=== PATIENT | female | born 1950 | race Two or more races ===

== ENCOUNTER 2020-02-21 11:34 | Emergency (ER) | payer MEDICAID, SELFPAY ==
[2020-02-21 12:24] VITALS: BP 106/88; PULSE 61; RESP 16; TEMP 36.7; O2SAT 100; BMI 34.7
--- NOTE | 2020-02-21 12:27 | ECG_ITS ---
Test Reason : CHEST PRESSURE Blood Pressure : / mmHG Vent. Rate : 069 BPM Atrial Rate : 069 BPM P-R Int : 152 ms QRS Dur : 136 ms QT Int : 440 ms P-R-T Axes : 021 -02 023 degrees QTc Int : 471 ms Normal sinus rhythm Right bundle branch block Abnormal ECG No previous ECGs available Referred By: Amrit King Electronically Signed By:FEMI RICO MD
--- NOTE | 2020-02-21 12:27 | XR_ITS ---
EXAMINATION: XR CHEST CLINICAL INFORMATION: Cough COMPARISON: None TECHNIQUE: Portable upright AP view of the chest was obtained. FINDINGS: There are scattered bilateral groundglass opacities predominantly mid and lower zones along the bronchovascular bundles and subpleural regions. There is no confluent lobar segmental airspace consolidation or effusion. The heart is normal in size. The hilar and mediastinal contours are normal. There are degenerative changes thoracic spine and shoulders. XR/XR chest 1V IMPRESSION: Scattered bilateral groundglass opacities mid and lower zones which may be related to atypical or viral pneumonia. No effusion.
--- NOTE | 2020-02-21 12:34 | ED.GENADULT ---
HPI - General Adult General Chief complaint: Allergic Reaction Stated complaint: ALLERGIC REACTION Time Seen by Provider: 02/21/20 12:25 Source: patient Mode of arrival: ambulatory Limitations: no limitations History of Present Illness HPI narrative: 69-year-old female with past medical history significant for hypertension on amlodipine, lisinopril and chlorthalidone home was experiencing some nasal congestion and rhinorrhea for the past couple days she developed a cough yesterday and called her primary care doctor as her was diagnosed with COVID-19 as well as couple other family members she was given a Z-Siddhartha and she took 1 dose last night and over the course of night she stated that she has some scratches nose and tongue swelling. This morning she called her primary care doctor who advised her to stop taking the chlorthalidone and lisinopril and the Z-Siddhartha as well and given her symptoms was advised to come to emergency room for evaluation. As it relates to the swelling in her tongue states that this has regressed significantly. Slight scratch in her throat but no shortness of breath or chest pain. There is no other rash or angioedema. She does report that she has had a cough with some mild shortness of breath in the setting of the rhinorrhea and other family members with similar symptoms with COVID test positive. She denies any lower extremity swelling or pain. No recent long flights or travel. Related Data Previous Rx's Medication Instructions Recorded benzonatate [Tessalon Perles] 100 mg PO BID PRN #14 cap 02/21/20 doxycycline monohydrate 100 mg PO BID 10 Days #20 cap 02/21/20 Allergies Allergy/AdvReac Type Severity Reaction Status Date / Time No Known Allergies Allergy Verified 02/21/20 12:26 Review of Systems Review of Systems: Constitutional: No Weight loss, No Fever, No Chills, No Night Sweats, No Fatigue, No Malaise ENT/Mouth: No Hearing loss, No Ear Pain, + Nasal Congestion, No Sinus Pain, No Hoarseness, No sore throat, No Rhinorrhea, No Swallowing Difficulty Eyes: No Eye Pain, No Swelling, No Redness, No Foreign Body, No Discharge, No Vision Changes Cardiovascular: No Chest Pain, No SOB, No Dyspnea on Exertion, No Orthopnea, No Edema, No Palpitations Respiratory: + Cough, No Sputum, No Wheezing, No Smoke Exposure, No Dyspnea Gastrointestinal: No Nausea, No Vomiting, No Diarrhea, No Constipation, No abdominal Pain, No Hematochezia, No Melena Genitourinary: no irregular bleeding, No Dysuria, No Urinary Frequency, No Hematuria, No Urinary Incontinence, No Urgency, No Flank Pain, No Urinary Flow Changes, No Hesitancy Musculoskeletal: No joint pain, No Myalgias, No Joint Swelling Skin: No Skin Lesions, No rash Neuro: No Weakness, No Numbness, No Paresthesias, No Loss of Consciousness, No Dizziness, No Headache Psych: No Social Issues, Heme/Lymph: No Bruising, No Bleeding,No Lymphadenopathy Endocrine: No Polyuria, No Polydipsia, No Temperature Intolerance [facility] Past Medical History Medical History (Updated 02/22/20 @ 00:04 by [place]) Breast CA Hypertension Surgical History (Updated 02/21/20 @ 12:27 by Jorge Aguilera) H/O mastectomy Social History Social History Alcohol intake: never Smoking Status: Never smoker Use of substances other than those prescribed or required for medical reasons: No Advance Directives: No Advance Directives Information Provided: No Physical Exam Vital Signs: Vital Signs: Last Vital Signs Temp 98.1 F 02/21/20 12:24 Pulse 61 02/21/20 12:24 Resp 16 02/21/20 12:24 BP 106/88 02/21/20 12:24 Pulse Ox 100 02/21/20 12:24 Body Mass Index 34.7 Reviewed Const: General: cooperative and healthy appearing; No acute distress or intoxicated appearing Nutritional Appearance: average body habitus Orientation/consciousness: patient oriented x3 HENMT: Head: Yes normal to inspection Ears: hearing grossly normal bilaterally Eyes: General: appearance normal, both eyes and all related structures Visual Stewart: normal visual stewart by confrontation Neck: Neck: Yes normal visual inspection and No tender Thyroid: Thyroid normal Chest: Chest palpation & inspection: normal inspection of the chest Resp: Effort & Inspection: normal respiratory effort Cardio: Jugular venous distension: no JVD GI: Inspection: Yes normal to inspection Percussion: Yes normal to percussion Auscultation: normal bowel sounds : General: Yes no CVA tenderness Back/Spine/Pelvis: Back: no CVA tenderness Skin: General skin exam: no rashes or lesions noted Neuro: General: patient oriented x3 Extrem: General: Yes normal to inspection Medical Decision Making MDM Narrative Medical decision making narrative: The now almost resolved angioedema is likely from her KENZIE-inhibitor and less likely from the drug reaction to azithromycin as she also had a nagging cough though she does have exposure to COVID-19 and she has had nasal congestion. Workup as noted. Patient resting comfortably no fever, not tachy, pulse ox of 97% on room air. No shortness of breath. Will be discharged home with antibiotics advised to stop her KENZIE-inhibitor, D.C. azithromycin and follow-up. Agreeable/comfortable plan. Findings reviewed with patient as well as daughter at bedside stable for discharge. Lab Data Result diagrams: 02/21/20 12:41 02/21/20 13:38 Labs: Lab Results 02/21/20 02/21/20 02/21/20 Range/Units 12:41 12:41 12:41 WBC 7.8 (4.8-10.8) X10*3/uL RBC 3.61 L (4.20-5.50) X10*6/uL Hgb 9.6 L (12.0-16.0) g/dl Hct 29.4 L (37-47) % MCV 81.4 (80-98) fL MCH 26.6 L (27.0-33.0) pg MCHC 32.7 (31.0-35.0) g/dl RDW 13.0 (11.0-16.0) % Plt Count 524 H (160-400) X10*3/uL MPV 8.5 L (9.4-12.3) fL Immature Gran % (Auto) 0.4 (0.0-0.4) % Neut % (Auto) 70.3 (45-73) % Lymph % (Auto) 19.1 L (20-40) % Crowley % (Auto) 8.1 (2-11) % Eos % (Auto) 1.7 (0-4) % Baso % (Auto) 0.4 (0-2) % Lymph # (Auto) 1.5 (1.2-4.9) X10*3/uL Crowley # (Auto) 0.6 (0.1-1.2) X10*3/uL Eos # (Auto) 0.1 (0.0-0.4) X10*3/uL Baso # (Auto) 0.0 (0.0-0.2) X10*3/uL Abs Immat Gran (auto) 0.03 (0.00-0.03) X10*3/uL Absolute Neuts (auto) 5.5 (2.0-8.3) X10*3/uL Absolute Nucleated RBC 0.000 (0.0-0.012) X10*3/uL Nucleated RBC % (auto) 0.0 (0.0-0.2) /100WBC PT (10.8-13.0) SEC INR (0.9-1.1) APTT (24.1-38.0) SEC D-Dimer NG/ML Sodium Cancelled Potassium Cancelled Chloride Cancelled Carbon Dioxide Cancelled Anion Gap Cancelled BUN Cancelled Creatinine Cancelled Estim Creat Clear Calc Cancelled Estimated GFR Cancelled Random Glucose Cancelled Lactic Acid (0.5-2.0) mmol/L Calcium Cancelled Total Bilirubin Cancelled AST Cancelled ALT Cancelled Alkaline Phosphatase Cancelled Troponin I High Sens (<3.5-17.0) ng/L B-Natriuretic Peptide 169 H (<100) pg/mL Total Protein Cancelled Albumin Cancelled Coronavirus (PCR) (Negative) 02/21/20 02/21/20 02/21/20 Range/Units 12:41 12:41 13:28 WBC (4.8-10.8) X10*3/uL RBC (4.20-5.50) X10*6/uL Hgb (12.0-16.0) g/dl Hct (37-47) % MCV (80-98) fL MCH (27.0-33.0) pg MCHC (31.0-35.0) g/dl RDW (11.0-16.0) % Plt Count (160-400) X10*3/uL MPV (9.4-12.3) fL Immature Gran % (Auto) (0.0-0.4) % Neut % (Auto) (45-73) % Lymph % (Auto) (20-40) % Crowley % (Auto) (2-11) % Eos % (Auto) (0-4) % Baso % (Auto) (0-2) % Lymph # (Auto) (1.2-4.9) X10*3/uL Crowley # (Auto) (0.1-1.2) X10*3/uL Eos # (Auto) (0.0-0.4) X10*3/uL Baso # (Auto) (0.0-0.2) X10*3/uL Abs Immat Gran (auto) (0.00-0.03) X10*3/uL Absolute Neuts (auto) (2.0-8.3) X10*3/uL Absolute Nucleated RBC (0.0-0.012) X10*3/uL Nucleated RBC % (auto) (0.0-0.2) /100WBC PT (10.8-13.0) SEC INR (0.9-1.1) APTT (24.1-38.0) SEC D-Dimer NG/ML Sodium Potassium Chloride Carbon Dioxide Anion Gap BUN Creatinine Estim Creat Clear Calc Estimated GFR Random Glucose Lactic Acid 0.6 (0.5-2.0) mmol/L Calcium Total Bilirubin AST ALT Alkaline Phosphatase Troponin I High Sens < 3.5 (<3.5-17.0) ng/L B-Natriuretic Peptide (<100) pg/mL Total Protein Albumin Coronavirus (PCR) POSITIVE A (Negative) 02/21/20 02/21/20 Range/Units 13:38 13:38 WBC (4.8-10.8) X10*3/uL RBC (4.20-5.50) X10*6/uL Hgb (12.0-16.0) g/dl Hct (37-47) % MCV (80-98) fL MCH (27.0-33.0) pg MCHC (31.0-35.0) g/dl RDW (11.0-16.0) % Plt Count (160-400) X10*3/uL MPV (9.4-12.3) fL Immature Gran % (Auto) (0.0-0.4) % Neut % (Auto) (45-73) % Lymph % (Auto) (20-40) % Crowley % (Auto) (2-11) % Eos % (Auto) (0-4) % Baso % (Auto) (0-2) % Lymph # (Auto) (1.2-4.9) X10*3/uL Crowley # (Auto) (0.1-1.2) X10*3/uL Eos # (Auto) (0.0-0.4) X10*3/uL Baso # (Auto) (0.0-0.2) X10*3/uL Abs Immat Gran (auto) (0.00-0.03) X10*3/uL Absolute Neuts (auto) (2.0-8.3) X10*3/uL Absolute Nucleated RBC (0.0-0.012) X10*3/uL Nucleated RBC % (auto) (0.0-0.2) /100WBC PT 11.8 (10.8-13.0) SEC INR 1.0 (0.9-1.1) APTT 30.0 (24.1-38.0) SEC D-Dimer 1723 NG/ML Sodium 128 L Potassium 4.7 Chloride 96 Carbon Dioxide 21 L Anion Gap 16 BUN 16 Creatinine 0.96 Estim Creat Clear Calc 57.6 Estimated GFR 57 Random Glucose 149 H Lactic Acid (0.5-2.0) mmol/L Calcium 8.3 L Total Bilirubin 0.2 AST 19 ALT 21 Alkaline Phosphatase 88 Troponin I High Sens (<3.5-17.0) ng/L B-Natriuretic Peptide (<100) pg/mL Total Protein 7.3 Albumin 3.7 Coronavirus (PCR) (Negative) Imaging Data CT scan - chest: Radiologist's impression: [place] [id number] CT Scan Report Signed Patient: MERCEDES HENNING#: [id number] : 1950Acct:[id number] Age/Sex: 69 / FADM Date: 02/21/20 Loc: .ED Attending Dr: Ordering Physician: Amrit King NP Date of Service: 02/21/20 Procedure(s): CT angio chest PE protocol Accession Number(s): [id number] cc: Amrit King AIRLINE RESERVATION AGENT~ EXAMINATION: CT ANGIOGRAM OF THE CHEST WITH AND WITHOUT CONTRAST (CT PULMONARY ANGIOGRAM FOR PE) CLINICAL INFORMATION: Reason for Exam SOB, elevated ddimer COMPARISON: Previous chest x-ray from earlier the same day TECHNIQUE: Prior to contrast administration, noncontrast localization images were obtained. Subsequently, multidetector volumetric imaging was performed from the thoracic inlet to below the diaphragms following the administration of 65 80 mLOmnipaque 350 intravenous contrast. No contrast reaction reported Sagittal, coronal, and MIP oblique sagittal reformatted images were obtained on the CT workstation, uploaded to PACS, and reviewed. This CT examination was performed using dose optimization techniques as appropriate, variously including the following: *Automated exposure control *Adjustment of mA and/or kV according to patient size (this includes techniques or standardized protocols for targeted exams where dose is matched to indication/reason for exam; i.e. extremities or head) *Use of iterative reconstruction technique Total exam dose-length product 454 mGy-cm FINDINGS: QUALITY OF STUDY/CONTRAST BOLUS: Satisfactory. PULMONARY ARTERIES: No central or segmental pulmonary emboli. THORACIC AORTA: No aneurysm or dissection. LUNG: There are bilateral peripheral groundglass attenuation and semisolid infiltrates. This is seen diffusely throughout the lungs but greatest at the lung bases. PLEURA: No pleural effusion or pneumothorax. MEDIASTINUM: The heart is upper normal in size. There is mild coronary artery calcification. The thoracic aorta is normal in caliber. There are small calcified and noncalcified mediastinal lymph nodes. No enlarged lymph nodes are seen. No evidence of septal bowing or right heart strain. CHEST WALL/AXILLA: The left breast has been removed. No chest wall mass or enlarged axillary lymph nodes are seen. OSSEOUS STRUCTURES: There are degenerative changes of the spine. There are degenerative changes at the shoulder joints. UPPER ABDOMEN: Unremarkable. No reflux of contrast into the hepatic veins to suggest elevated right heart pressures. CT/CT angio chest PE protocol IMPRESSION: No evidence of pulmonary embolism. Bilateral peripheral ground glass attenuation and semisolid opacities suggestive of an infectious or inflammatory process. Covid infection should be excluded. VTE: negative Findings will be communicated by the [facility] work flow vat house supervisor Leeanna Michelle. Dictated By:NICOLE GUTIERREZ MD Signed By:<Electronically signed by NICOLE GUTIERREZ MD in OV>02/21/20 1600 DD/ 1422 TD/TT: Computer Numerical Control Operator: MORE Chest x-ray: Radiologist's impression: [address] [address] XRay Report Signed Patient: ERICK HENNING#: [id number] : 1950Acct:[id number] Age/Sex: 69 / FADM Date: 02/21/20 Loc: HO.ED Attending Dr: Ordering Physician: Amrit King NP Date of Service: 02/21/20 Procedure(s): XR chest 1V Accession Number(s): [id number] cc: Amrit King AIRLINE RESERVATION AGENT~ EXAMINATION: XR CHEST CLINICAL INFORMATION: Cough COMPARISON: None TECHNIQUE: Portable upright AP view of the chest was obtained. FINDINGS: There are scattered bilateral groundglass opacities predominantly mid and lower zones along the bronchovascular bundles and subpleural regions. There is no confluent lobar segmental airspace consolidation or effusion. The heart is normal in size. The hilar and mediastinal contours are normal. There are degenerative changes thoracic spine and shoulders. XR/XR chest 1V IMPRESSION: Scattered bilateral groundglass opacities mid and lower zones which may be related to atypical or viral pneumonia. No effusion. Dictated By:SOFIA GATICA MD Signed By:<Electronically signed by SOFIA GATICA MD in OV>02/21/20 1315 DD/ 1227 TD/TT: Computer Numerical Control Operator: ALEXANDER Discharge Plan Discharge Clinical Impression: Adverse reaction to drug, COVID-19 Patient Disposition: Home, Self-Care Instructions: Antibiotic Medication Allergy (ED), COVID-19 (Coronavirus Disease 2019) (ED) Additional Instructions: Today you were evaluated for potential drug reaction to azithromycin Z-Siddhartha however your on a medication for high blood pressure (lisinopril) this medication is known to have side effects of angioedema (tongue swelling lip swelling) please stop taking his medications Today your also diagnosed with COVID-19 Return to the emergency room if any shortness of breath or worsening symptoms Otherwise take her antibiotic as prescribed Thank you Prescriptions: New doxycycline monohydrate 100 mg capsule 100 mg PO BID 10 Days Qty: 20 RF: 0 benzonatate [Tessalon Perles] 100 mg capsule 100 mg PO BID PRN (Reason: cough) Qty: 14 RF: 1 Referrals: Felicia Medellin MD [Primary Care Provider] - 1 week Interventions: ED Discharge Assessment Last Done: 02/21/20 16:27 Discharge Date/Time: 02/21/20 16:28
[2020-02-21 12:51] LABS: MANUAL DIFF FLAG NO
[2020-02-21 12:57] LABS: Basophils Percent Auto 0.4 % (0-2); Eosinophils Absolute Auto 0.1 X10*3/uL (0.0-0.4); Eosinophils Percent Auto 1.7 % (0-4); Hematocrit 29.4 % (37-47); Hemoglobin 9.6 g/dl (12.0-16.0); Imm Gran Abs Auto 0.03 X10*3/uL (0.00-0.03); Imm Gran Pct Auto 0.4 % (0.0-0.4); Lymphocytes Absolute Auto 1.5 X10*3/uL (1.2-4.9); Lymphocytes Percent Auto 19.1 % (20-40); Mean Corpuscular HGB Conc 32.7 g/dl (31.0-35.0); Mean Corpuscular Hemoglobin 26.6 pg (27.0-33.0); Mean Corpuscular Volume 81.4 fL (80-98); Mean Platelet Volume 8.5 fL (9.4-12.3); Monocytes Absolute Auto 0.6 X10*3/uL (0.1-1.2); Monocytes Percent Auto 8.1 % (2-11); Neutrophils Absolute Auto 5.5 X10*3/uL (2.0-8.3); Neutrophils Percent Auto 70.3 % (45-73); Platelet Count 524 X10*3/uL (160-400); Red Blood Count 3.61 X10*6/uL (4.20-5.50); White Blood Count 7.8 X10*3/uL (4.8-10.8)
[2020-02-21] MEDS: 0.9 % Sodium Chloride 500 ML 1000 ML IV (13:06)
[2020-02-21] MEDS: methylPREDNISolone Sod Succ/PF 125 MG/2 ML VIAL IVPUSH (13:06)
[2020-02-21] MEDS: diphenhydrAMINE HCL 50 MG/ML VIAL 25 MG IVPUSH (13:07)
[2020-02-21 13:26] LABS: Lactic Acid 0.6 mmol/L (0.5-2.0)
[2020-02-21 13:35] LABS: B Type Natriuretic Peptide 169 pg/mL (<100); Troponin-I High Sensitivity < 3.5 ng/L (<3.5-17.0)
[2020-02-21 13:57] LABS: Prothrombin Time 11.8 SEC (10.8-13.0)
[2020-02-21 14:07] LABS: D Dimer 1723 NG/ML
--- NOTE | 2020-02-21 14:22 | CT_ITS ---
EXAMINATION: CT ANGIOGRAM OF THE CHEST WITH AND WITHOUT CONTRAST (CT PULMONARY ANGIOGRAM FOR PE) CLINICAL INFORMATION: Reason for Exam SOB, elevated ddimer COMPARISON: Previous chest x-ray from earlier the same day TECHNIQUE: Prior to contrast administration, noncontrast localization images were obtained. Subsequently, multidetector volumetric imaging was performed from the thoracic inlet to below the diaphragms following the administration of 65 80 mLOmnipaque 350 intravenous contrast. No contrast reaction reported Sagittal, coronal, and MIP oblique sagittal reformatted images were obtained on the CT workstation, uploaded to PACS, and reviewed. This CT examination was performed using dose optimization techniques as appropriate, variously including the following: *Automated exposure control *Adjustment of mA and/or kV according to patient size (this includes techniques or standardized protocols for targeted exams where dose is matched to indication/reason for exam; i.e. extremities or head) *Use of iterative reconstruction technique Total exam dose-length product 454 mGy-cm FINDINGS: QUALITY OF STUDY/CONTRAST BOLUS: Satisfactory. PULMONARY ARTERIES: No central or segmental pulmonary emboli. THORACIC AORTA: No aneurysm or dissection. LUNG: There are bilateral peripheral groundglass attenuation and semisolid infiltrates. This is seen diffusely throughout the lungs but greatest at the lung bases. PLEURA: No pleural effusion or pneumothorax. MEDIASTINUM: The heart is upper normal in size. There is mild coronary artery calcification. The thoracic aorta is normal in caliber. There are small calcified and noncalcified mediastinal lymph nodes. No enlarged lymph nodes are seen. No evidence of septal bowing or right heart strain. CHEST WALL/AXILLA: The left breast has been removed. No chest wall mass or enlarged axillary lymph nodes are seen. OSSEOUS STRUCTURES: There are degenerative changes of the spine. There are degenerative changes at the shoulder joints. UPPER ABDOMEN: Unremarkable. No reflux of contrast into the hepatic veins to suggest elevated right heart pressures. CT/CT angio chest PE protocol IMPRESSION: No evidence of pulmonary embolism. Bilateral peripheral ground glass attenuation and semisolid opacities suggestive of an infectious or inflammatory process. Covid infection should be excluded. VTE: negative Findings will be communicated by the [facility] work flow strip winder Leeanna Michelle.
[2020-02-21 14:33] LABS: Alanine Aminotransferase 21 U/L (0-31); Albumin Level 3.7 g/dL (3.5-5.0); Alkaline Phosphatase 88 U/L (39-117); Aspartate Amino Transferase 19 U/L (5-31); Bilirubin Total 0.2 mg/dL (0.0-1.0); Blood Urea Nitrogen 16 mg/dL (9-16); Calcium 8.3 mg/dL (8.4-10.2); Creatinine Clr Calc Pharmacy 57.6; Estimated Glomerular Filt Rate 57; Glucose Random 149 mg/dL (60-115); Total Protein 7.3 g/dL (6.5-8.0)
[2020-02-21 14:35] LABS: SARS COV2 PCR INHOUSE POSITIVE (Negative)
[2020-02-21 14:41] LABS: Anion Gap 16 (12-20); Carbon Dioxide 21 mmol/L (22-29); Chloride 96 mmol/L (96-108); Potassium 4.7 mmol/l (3.3-5.1); Sodium 128 mmol/L (135-145)
--- NOTE | 2020-02-21 14:53 | PC.NURSE ---
taken to ct scan via stretcher
[2020-02-21] MEDS: iohexoL 350 MG/ML 100 ML INFUS..BTL IV (15:41)
== END 2020-02-21 16:28 | disposition home or self-care (01) ==
PROVIDERS: Nurse Practitioner Primary Care; Emergency Provider Emergency Medicine; PCP Internal Medicine
DX: U07.1 COVID-19 (principal); R09.89 Other specified symptoms and signs involving the circulatory and respiratory systems; T46.1X5A Adverse effect of calcium-channel blockers, initial encounter; T46.4X5A Adverse effect of angiotensin-converting-enzyme inhibitors, initial encounter; Y92.9 Unspecified place or not applicable; Z79.899 Other long term (current) drug therapy
CPT/HCPCS: 36415; 71045; 71275; 80053; 83605; 83880; 84484; 85025; 85379; 85610; 85730; 87040; 93005; 96374; 96375; 99284; J1200; J2930; Q9967; U0003

== ENCOUNTER 2021-06-07 13:07 | Inpatient (IN) | payer MEDICAID, SELFPAY ==
--- NOTE | ~2021-06-07 | XR_ITS ---
EXAMINATION: XR CHEST CLINICAL INFORMATION: Chest pain COMPARISON: February 21, 2020 TECHNIQUE: PA view of the chest was obtained. FINDINGS: No significant abnormality is noted involving the heart, lungs, mediastinum, bony thorax or soft tissues. Degenerative change of the acromioclavicular joints seen bilaterally. XR/XR chest 1V IMPRESSION: No acute disease.
--- NOTE | ~2021-06-07 | CT_ITS ---
EXAMINATION: CT ANGIOGRAM OF THE CHEST WITH AND WITHOUT CONTRAST (CT PULMONARY ANGIOGRAM FOR PE) CLINICAL INFORMATION: Reason for Exam cp with history of DVT COMPARISON: February 21, 2020 TECHNIQUE: Prior to contrast administration, noncontrast localization images were obtained. Subsequently, multidetector volumetric imaging was performed from the thoracic inlet to below the diaphragms following the administration of 69 mL Omnipaque 350 intravenous contrast. No contrast reaction reported Sagittal, coronal, and MIP oblique sagittal reformatted images were obtained on the CT workstation, uploaded to PACS, and reviewed. This CT examination was performed using dose optimization techniques as appropriate, variously including the following: *Automated exposure control *Adjustment of mA and/or kV according to patient size (this includes techniques or standardized protocols for targeted exams where dose is matched to indication/reason for exam; i.e. extremities or head) *Use of iterative reconstruction technique Total exam dose-length product 343 mGy-cm FINDINGS: QUALITY OF STUDY/CONTRAST BOLUS: Satisfactory. PULMONARY ARTERIES: No central or segmental pulmonary emboli. THORACIC AORTA: No aneurysm or dissection. LUNG: Central airways are patent. There is some central bronchial wall thickening present without evidence of bronchiectasis. No confluent parenchymal disease identified. There are some scattered regions of groundglass opacity present which are nonspecific and may relate to atelectasis, air-trapping, or regions of differential perfusion. PLEURA: No pleural effusion or pneumothorax. There is some endothoracic fat deposition present. MEDIASTINUM: Heart is upper limits of normal in size. Coronary artery calcifications present. No pericardial effusion. No hilar or mediastinal lymphadenopathy. There is a calcified right hilar lymph node and subcarinal lymph node. No evidence of septal bowing or right heart strain. Visualized portions of the thyroid gland unremarkable. There is some herniated fat seen about the right posterior mediastinum. CHEST WALL/AXILLA: No axillary or internal mammary lymphadenopathy. OSSEOUS STRUCTURES: There is severe degenerative change of the right shoulder joint. There is degenerative change of the left shoulder. No suspicious destructive bony lesions identified. There is degenerative disc disease with marginal spurring seen within the lower cervical spine as well as T1 and T2. UPPER ABDOMEN: Unremarkable. No reflux of contrast into the hepatic veins to suggest elevated right heart pressures. CT/CT angio chest PE protocol IMPRESSION: No evidence of acute pulmonary artery embolus. No evidence of thoracic aortic aneurysm or dissection. VTE: negative
--- NOTE | 2021-06-07 13:11 | ECG_ITS ---
Test Reason : CHEST PAIN Blood Pressure : / mmHG Vent. Rate : 069 BPM Atrial Rate : 069 BPM P-R Int : 154 ms QRS Dur : 134 ms QT Int : 454 ms P-R-T Axes : 031 -22 006 degrees QTc Int : 486 ms Normal sinus rhythm Right bundle branch block Abnormal ECG When compared with ECG of 21-FEB-2020 13:21, No significant change was found Referred By: Generic ED Physician Electronically Signed By:TERESSA MONTANEZ
[2021-06-07 13:33] VITALS: BP 165/85; PULSE 67; RESP 17; TEMP 35.7; O2SAT 98; BMI 33.8
[2021-06-07 14:21] LABS: MANUAL DIFF FLAG NO
[2021-06-07 14:23] LABS: Basophils Percent Auto 0.4 % (0-2); Eosinophils Absolute Auto 0.1 X10*3/uL (0.0-0.4); Eosinophils Percent Auto 0.7 % (0-4); Hematocrit 37.5 % (37.0-47.0); Imm Gran Abs Auto 0.05 X10*3/uL (0.00-0.03); Imm Gran Pct Auto 0.5 % (0.0-0.4); Lymphocytes Absolute Auto 2.3 X10*3/uL (1.2-4.9); Lymphocytes Percent Auto 23.5 % (20-40); Mean Corpuscular Hemoglobin 26.2 pg (27.0-33.0); Mean Corpuscular Volume 81.9 fL (80.0-98.0); Mean Platelet Volume 9.3 fL (9.4-12.3); Neutrophils Absolute Auto 6.3 x10*3/uL (2.0-8.3); Neutrophils Percent Auto 64.9 % (45-73); Platelet Count 362 X10*3/uL (160-400); Red Blood Count 4.58 X10*6/uL (4.20-5.50); Red Cell Distribution Width 13.2 % (11.0-16.0); White Blood Count 9.8 X10*3/uL (4.8-10.8)
[2021-06-07 14:28] LABS: Prothrombin Time 11.1 SEC (9.9-13.0)
[2021-06-07 14:31] LABS: Partial Thromboplastin Time 31.8 SEC (24.1-38.0)
[2021-06-07 14:35] LABS: Anion Gap 15 (12-20); Blood Urea Nitrogen 18 mg/dL (9-16); Calcium 9.4 mg/dL (8.4-10.2); Carbon Dioxide 27 mmol/L (22-29); Chloride 101 mmol/L (96-108); Creatinine Clr Calc Pharmacy 46.8; Estimated Glomerular Filt Rate 47; Glucose Random 126 mg/dL (60-115); Potassium 3.7 mmol/L (3.3-5.1); Sodium 139 mmol/L (135-145)
[2021-06-07 14:49] LABS: Troponin-I High Sensitivity 47.1 ng/L (<3.5-17.0)
[2021-06-07 15:48] VITALS: BP 175/73; PULSE 73; RESP 19
--- NOTE | 2021-06-07 16:19 | ED.CHESTPAIN ---
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 Chest pain started at 05:00, lasted for about 3 hours, described the pain as dull aching pain at to the whole entire chest, no arc revealing factor, no relieving factor, never had this pain before, give her 1 pill of antibiotic (Augmentin) left over and some pain medication and patient felt better after 3 hours of having the pain. No recent travel, no lower extremity swelling, no shortness of breath. But patient had history of DVT. No recent trauma to the chest. Related Data Previous Rx's Medication Instructions Recorded benzonatate 100 mg capsule 100 mg PO BID PRN #14 cap 02/21/20 (Tessalon Perles) doxycycline monohydrate 100 mg 100 mg PO BID 10 Days #20 cap 02/21/20 capsule Allergies Allergy/AdvReac Type Severity Reaction Status Date / Time No Known Allergies Allergy Verified 02/21/20 12:26 Review of Systems Review of Systems: All other systems are reviewed and are negative Constitutional: Reports as per HPI and Reports no additional constitutional complaints Eyes: Reports as per HPI and Reports no additional eye complaints Reports system reviewed and no additional complaints, except as documented Cardiovascular: Reports as per HPI and Reports no additional cardiovascular complaints Respiratory: Reports as per HPI and Reports no additional respiratory complaints Gastrointestinal: Reports as per HPI and Reports no additional gastrointestinal complaints Genitourinary: Reports no additional female genitourinary complaints Musculoskeletal: Reports no additional musculoskeletal complaints Skin/Breast: Reports system reviewed and no additional complaints, except as docu Psychiatric: Reports no additional psychiatric complaints Endocrine: Reports no additional endocrine complaints Hematologic/Lymphatic: Reports no additional hematologic/lymphatic complaints Allergic/Immunologic: Reports no additional allergic/immunologic complaints Reports system reviewed and no additional complaints, except as documented and Reports Abnormal speech present [facility] Past Medical History Medical History Breast CA Hypertension Surgical History H/O mastectomy Social History Social History Alcohol intake: never Advance Directives: Yes Advance Directives Information Provided: Yes Advance Directives on File: No Physical Exam Vital Signs: Vital Signs: Last Vital Signs Temp 96.2 F L 06/07/21 13:33 Pulse 73 06/07/21 15:48 Resp 19 06/07/21 15:48 BP 175/73 H 06/07/21 15:48 Pulse Ox 98 06/07/21 13:33 BMI result Body Mass Index 33.8 Vital signs have been reviewed as appeared to be correct. Blood pressure elevated. Heart rate normal. Respiration rate normal. Temperature normal. Oxygen saturation normal. Appearance: Alert. Oriented X3. No acute distress. Head: Normal external exam. Normocephalic. Atraumatic. No Hendrickson signs noted. No raccoon eyes noted Eyes: PERRLA. EOMI. Conjunctiva and sclera normal. Eyelids normal. ENT: TM's Normal. Pharynx normal. Uvula midline. Moist mucous membranes. No trismus noted. No drooling noted. No muffled voice noted. Neck: Normal inspection. Neck supple. FROM. No adenopathy. Thyroid Normal. No meningeal signs. No neck mass noted. CVS: Normal heart rate and rhythm. Heart sound normal. No murmurs noted. Pulses normal throughout. Respiratory: No respiratory distress. Painless inspiration. Breath sounds normal. No wheezes/rales/rhonchi noted. Chest nontender. No accessory muscle usage noted or decreased air movement noted. Abdomen: Soft and nontender. Bowel sounds normal in all 4 quadrants. No distention noted. No organomegaly noted. No visible injury noted. Back: No CVA tenderness. Full range of motion noted. Skin: Skin warm and dry. Normal skin color. Normal skin turgor. No rashes/lesions/lacerations noted. Extremities: No lower extremity edema. Extremities exhibit normal range of motion. Extremities nontender. Neuro: Oriented X 3. Cranial nerve exam: II-XII are grossly intact No motor deficit. No sensory deficit. Reflexes normal. Course Course Course Narrative: Assessment and plan. 70-year-old female came in with chest pain, 1st troponin is slightly elevated will repeat troponin in 3 hours to rule out delta change. Patient had a history of DVT will consider CT of the chest to rule out PE. Case signed out to Dr. Oconnor. To check on labs and CT angio of the chest then dispo accordingly. MDM - Chest Pain Lab Data Attestation: I reviewed the patient's lab results. Result diagrams: 06/07/21 14:15 06/07/21 14:15 Labs: Lab Results 06/07/21 06/07/21 06/07/21 Range/Units 14:15 14:15 14:15 WBC 9.8 (4.8-10.8) X10*3/uL RBC 4.58 (4.20-5.50) X10*6/uL Hgb 12.0 (12.0-16.0) g/dl Hct 37.5 (37.0-47.0) % MCV 81.9 (80.0-98.0) fL MCH 26.2 L (27.0-33.0) pg MCHC 32.0 (31.0-35.0) g/dl RDW 13.2 (11.0-16.0) % Plt Count 362 (160-400) X10*3/uL MPV 9.3 L (9.4-12.3) fL Immature Gran % (Auto) 0.5 H (0.0-0.4) % Neut % (Auto) 64.9 (45-73) % Lymph % (Auto) 23.5 (20-40) % [place] % (Auto) 10.0 (2-11) % Eos % (Auto) 0.7 (0-4) % Baso % (Auto) 0.4 (0-2) % Lymph # (Auto) 2.3 (1.2-4.9) X10*3/uL [place] # (Auto) 1.0 (0.1-1.2) X10*3/uL Eos # (Auto) 0.1 (0.0-0.4) X10*3/uL Baso # (Auto) 0.0 (0.0-0.2) X10*3/uL Abs Immat Gran (auto) 0.05 H (0.00-0.03) X10*3/uL Absolute Neuts (auto) 6.3 (2.0-8.3) x10*3/uL Absolute Nucleated RBC 0.000 (0.0-0.012) X10*3/uL Nucleated RBC % (auto) 0.0 (0.0-0.2) /100WBC PT (9.9-13.0) SEC INR (0.9-1.1) APTT (24.1-38.0) SEC Sodium 139 (135-145) mmol/L Potassium 3.7 (3.3-5.1) mmol/L Chloride 101 (96-108) mmol/L Carbon Dioxide 27 (22-29) mmol/L Anion Gap 15 (12-20) BUN 18 H (9-16) mg/dL Creatinine 1.15 (0.5-1.4) mg/dL Estim Creat Clear Calc 46.8 Estimated GFR 47 Random Glucose 126 H (60-115) mg/dL Calcium 9.4 D (8.4-10.2) mg/dL Troponin I High Sens 47.1 H (<3.5-17.0) ng/L 06/07/21 Range/Units 14:15 WBC (4.8-10.8) X10*3/uL RBC (4.20-5.50) X10*6/uL Hgb (12.0-16.0) g/dl Hct (37.0-47.0) % MCV (80.0-98.0) fL MCH (27.0-33.0) pg MCHC (31.0-35.0) g/dl RDW (11.0-16.0) % Plt Count (160-400) X10*3/uL MPV (9.4-12.3) fL Immature Gran % (Auto) (0.0-0.4) % Neut % (Auto) (45-73) % Lymph % (Auto) (20-40) % [place] % (Auto) (2-11) % Eos % (Auto) (0-4) % Baso % (Auto) (0-2) % Lymph # (Auto) (1.2-4.9) X10*3/uL [place] # (Auto) (0.1-1.2) X10*3/uL Eos # (Auto) (0.0-0.4) X10*3/uL Baso # (Auto) (0.0-0.2) X10*3/uL Abs Immat Gran (auto) (0.00-0.03) X10*3/uL Absolute Neuts (auto) (2.0-8.3) x10*3/uL Absolute Nucleated RBC (0.0-0.012) X10*3/uL Nucleated RBC % (auto) (0.0-0.2) /100WBC PT 11.1 (9.9-13.0) SEC INR 1.0 (0.9-1.1) APTT 31.8 (24.1-38.0) SEC Sodium (135-145) mmol/L Potassium (3.3-5.1) mmol/L Chloride (96-108) mmol/L Carbon Dioxide (22-29) mmol/L Anion Gap (12-20) BUN (9-16) mg/dL Creatinine (0.5-1.4) mg/dL Estim Creat Clear Calc Estimated GFR Random Glucose (60-115) mg/dL Calcium (8.4-10.2) mg/dL Troponin I High Sens (<3.5-17.0) ng/L Imaging Data Chest x-ray: Attestation: I personally reviewed and interpreted this imaging study as follows: Radiologist's impression: No acute disease. Discharge Plan Discharge Clinical Impression: Chest pain Prescriptions: No Action doxycycline monohydrate 100 mg capsule 100 mg PO BID 10 Days Qty: 20 0RF benzonatate [Tessalon Perles] 100 mg capsule 100 mg PO BID PRN (Reason: cough) Qty: 14 1RF
[2021-06-07 16:35] LABS: D Dimer High Sensitivity 306 NG/ML
[2021-06-07] MEDS: iohexoL 350 MG/ML 100 ML INFUS..BTL IV (16:37)
--- NOTE | 2021-06-07 16:55 | ECG_ITS ---
Test Reason : CP Blood Pressure : / mmHG Vent. Rate : 075 BPM Atrial Rate : 075 BPM P-R Int : 150 ms QRS Dur : 142 ms QT Int : 424 ms P-R-T Axes : 036 -26 024 degrees QTc Int : 473 ms Normal sinus rhythm with sinus arrhythmia Right bundle branch block Abnormal ECG When compared with ECG of 07-JUN-2021 13:20, No significant change was found Referred By: Reynaldo Oconnor Electronically Signed By:TERESSA MONTANEZ
--- NOTE | 2021-06-07 16:57 | ED.CHESTPAIN ---
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 Mode of arrival: ambulatory Limitations: no limitations Related Data Home Medications Medication Instructions Recorded Confirmed amlodipine 10 mg tablet 1 tab PO DAILY 06/07/21 anastrozole 1 mg tablet 1 tab PO BEDTIME 06/07/21 chlorthalidone 25 mg tablet 1 tab PO DAILY 06/07/21 cholecalciferol (vitamin D3) 10 20 mcg PO DAILY 06/07/21 06/07/21 mcg (400 unit) tablet (Vitamin D3) omeprazole 40 mg capsule,delayed 1 cap PO DAILY 06/07/21 release Allergies Allergy/AdvReac Type Severity Reaction Status Date / Time No Known Allergies Allergy Verified 02/21/20 12:26 [facility] Past Medical History Medical History Breast CA Hypertension Surgical History H/O mastectomy Social History Social History Alcohol intake: never Advance Directives: Yes Advance Directives Information Provided: Yes Advance Directives on File: No Physical Exam Vital Signs: Vital Signs: Last Vital Signs Temp 96.2 F L 06/07/21 13:33 Pulse 89 06/07/21 17:01 Resp 12 06/07/21 17:01 BP 162/79 H 06/07/21 17:01 Pulse Ox 100 06/07/21 17:01 BMI result Body Mass Index 33.8 MDM - Chest Pain Lab Data Attestation: I reviewed the patient's lab results. Result diagrams: 06/07/21 14:15 06/07/21 14:15 Labs: Lab Results 06/07/21 06/07/21 06/07/21 Range/Units 14:15 14:15 14:15 WBC 9.8 (4.8-10.8) X10*3/uL RBC 4.58 (4.20-5.50) X10*6/uL Hgb 12.0 (12.0-16.0) g/dl Hct 37.5 (37.0-47.0) % MCV 81.9 (80.0-98.0) fL MCH 26.2 L (27.0-33.0) pg MCHC 32.0 (31.0-35.0) g/dl RDW 13.2 (11.0-16.0) % Plt Count 362 (160-400) X10*3/uL MPV 9.3 L (9.4-12.3) fL Immature Gran % (Auto) 0.5 H (0.0-0.4) % Neut % (Auto) 64.9 (45-73) % Lymph % (Auto) 23.5 (20-40) % [place] % (Auto) 10.0 (2-11) % Eos % (Auto) 0.7 (0-4) % Baso % (Auto) 0.4 (0-2) % Lymph # (Auto) 2.3 (1.2-4.9) X10*3/uL [place] # (Auto) 1.0 (0.1-1.2) X10*3/uL Eos # (Auto) 0.1 (0.0-0.4) X10*3/uL Baso # (Auto) 0.0 (0.0-0.2) X10*3/uL Abs Immat Gran (auto) 0.05 H (0.00-0.03) X10*3/uL Absolute Neuts (auto) 6.3 (2.0-8.3) x10*3/uL Absolute Nucleated RBC 0.000 (0.0-0.012) X10*3/uL Nucleated RBC % (auto) 0.0 (0.0-0.2) /100WBC PT (9.9-13.0) SEC INR (0.9-1.1) APTT (24.1-38.0) SEC D-Dimer High Sensitivty NG/ML Sodium 139 (135-145) mmol/L Potassium 3.7 (3.3-5.1) mmol/L Chloride 101 (96-108) mmol/L Carbon Dioxide 27 (22-29) mmol/L Anion Gap 15 (12-20) BUN 18 H (9-16) mg/dL Creatinine 1.15 (0.5-1.4) mg/dL Estim Creat Clear Calc 46.8 Estimated GFR 47 Random Glucose 126 H (60-115) mg/dL Calcium 9.4 D (8.4-10.2) mg/dL Troponin I High Sens 47.1 H (<3.5-17.0) ng/L COVID-19 (BRIJESH) (Negative) COVID-19 Clin Com 06/07/21 06/07/21 06/07/21 Range/Units 14:15 17:06 17:06 WBC (4.8-10.8) X10*3/uL RBC (4.20-5.50) X10*6/uL Hgb (12.0-16.0) g/dl Hct (37.0-47.0) % MCV (80.0-98.0) fL MCH (27.0-33.0) pg MCHC (31.0-35.0) g/dl RDW (11.0-16.0) % Plt Count (160-400) X10*3/uL MPV (9.4-12.3) fL Immature Gran % (Auto) (0.0-0.4) % Neut % (Auto) (45-73) % Lymph % (Auto) (20-40) % [place] % (Auto) (2-11) % Eos % (Auto) (0-4) % Baso % (Auto) (0-2) % Lymph # (Auto) (1.2-4.9) X10*3/uL [place] # (Auto) (0.1-1.2) X10*3/uL Eos # (Auto) (0.0-0.4) X10*3/uL Baso # (Auto) (0.0-0.2) X10*3/uL Abs Immat Gran (auto) (0.00-0.03) X10*3/uL Absolute Neuts (auto) (2.0-8.3) x10*3/uL Absolute Nucleated RBC (0.0-0.012) X10*3/uL Nucleated RBC % (auto) (0.0-0.2) /100WBC PT 11.1 (9.9-13.0) SEC INR 1.0 (0.9-1.1) APTT 31.8 (24.1-38.0) SEC D-Dimer High Sensitivty 306 NG/ML Sodium (135-145) mmol/L Potassium (3.3-5.1) mmol/L Chloride (96-108) mmol/L Carbon Dioxide (22-29) mmol/L Anion Gap (12-20) BUN (9-16) mg/dL Creatinine (0.5-1.4) mg/dL Estim Creat Clear Calc Estimated GFR Random Glucose (60-115) mg/dL Calcium (8.4-10.2) mg/dL Troponin I High Sens 49.7 H (<3.5-17.0) ng/L COVID-19 (BRIJESH) Negative (Negative) COVID-19 Clin Com See Note Discharge Plan Discharge Clinical Impression: Chest pain Patient Disposition: Admitted As Inpatient
[2021-06-07 17:01] VITALS: BP 162/79; PULSE 89; RESP 12; O2SAT 100
[2021-06-07] MEDS: Aspirin 81 MG TAB.CHEW 162 MG PO (17:04)
[2021-06-07] MEDS: Nitroglycerin 2 % Oint 1 GM Packet 1 INCH TRANSDERMA (17:05)
--- NOTE | 2021-06-07 17:18 | PC.NURSE ---
Nitro paste applied to upper right chest at 1715
[2021-06-07 17:35] LABS: COVID-19 Test Negative (Negative); IDNOW Serial# 16C4AD1C
[2021-06-07 17:39] LABS: Troponin-I High Sensitivity 49.7 ng/L (<3.5-17.0)
[2021-06-07 17:50] VITALS: BP 142/72; PULSE 84; RESP 18; O2SAT 97
--- NOTE | 2021-06-07 17:50 | PHA.MEDREC ---
Pharmacy Consult ? Medication Reconciliation Pharmacy has completed the medication reconciliation. Spoke with patient and her daughter in law who works at [employer] [facility] [place], she is able to translate ([phone]). The patient took all of her morning medications today and I was able to update her allergies.
[2021-06-07 18:14] VITALS: BMI 33.6
--- NOTE | 2021-06-07 18:19 | PM.IMHP ---
History of Present Illness Date of Service: 06/07/21 Attending physician on admission: Eugenio Schwarz Chief Complaint: chest pain 70 years old female came in for evaluation of chest pain-Chest pain started at 05:00, lasted for about 3 hours, dull aching pain at to the whole entire chest and neck as well as back, she says she thought probably sec to stomach upset, denies any revealing factor or relieving factor, never had this pain before, give her 1 pill of antibiotic (Augmentin) left over and some pain medication and patient felt better afterwards, she says than her family insisted her to come to the hospital for checkup. She says that she did not had any other episode of chest pain afterwards. No recent travel, no lower extremity swelling,No recent trauma chest. Denies any or shortness of breath or abdominal pain or fever or chills or nausea or vomiting Denies any cough Denies any weakness or numbness. Workup in the emergency room: CTA negative for pulmonary embolism, chest x-ray seems fine, troponin 47 and 49 flat range simultaneously. EKG NSR with RBBB Family history: Patient denies any history of cardiac disease, denies any smoking or recreational drug use or alcohol use. In Ed: recived asa , heparin , added statin, ED physician discussed the case with Cardiology: Patient admitted for further workup and if needed further intervention, started on IV heparin drip. Review of Systems Review of Systems: As above. Yes all other systems are reviewed and are negative [facility] Medical History Breast CA Hypertension Pertinent family history: Father had gallbladder cancer. Surgical History H/O mastectomy Social History Alcohol intake: unknown Patient Tobacco Use Status: Tobacco use Unknown Use of substances other than those prescribed or required for medical reasons: Unknown Advance Directives: Yes Advance Directives Information Provided: Yes Advance Directives on File: No Meds Allergies Allergy/AdvReac Type Severity Reaction Status Date / Time ibuprofen Allergy Anaphylaxis Verified 06/07/21 17:50 lisinopril AdvReac Cough Verified 06/07/21 17:49 Active Medications: Current Medications Amlodipine Besylate (Amlodipine Besylate 10 Mg Tablet) 10 mg PO DAILY [facility]; Protocol Anastrozole (Anastrozole 1 Mg Tablet) 1 mg PO BEDTIME [facility] Aspirin (Aspirin Enteric Coated 81 Mg Tablet.) 81 mg PO DAILY [facility] Atorvastatin Calcium (Atorvastatin Calcium 80 Mg Tablet) 80 mg PO BEDTIME [facility] Heparin Sodium (Porcine) (Heparin Sodium,Porcine 5,000 Unit/Ml Vial) 3,500 unit 40 unit/kg (3500 unit) IVPUSH PROTOCOL BOLUS PRN; Protocol PRN Reason: 40 unit/kg - Heparin Protocol Heparin Sodium (Porcine) (Heparin Sodium,Porcine 5,000 Unit/Ml Vial) 6,900 unit 80 unit/kg (6900 unit) IVPUSH PROTOCOL BOLUS PRN; Protocol PRN Reason: 80 unit/kg - Heparin Protocol Heparin Sodium/Sodium Chloride () 25,000 unit in 250 mls @ 0 mls/hr IVCONT .Q0M SEA; Protocol Non-Formulary Medication (Chlorthalidone) 1 tab PO DAILY [facility] Omeprazole (Omeprazole 40 Mg Capsule.) 40 mg PO DAILY [facility] Sodium Chloride (0.9 % Sodium Chloride Flush 3 Ml Syringe) 3 ml IVFLUSH QSHIFT [facility] Vitamin D (Cholecalciferol (Vitamin D3) 10 Mcg Tablet) 20 mcg PO DAILY [facility] Home Medications Medication Instructions Recorded Confirmed Last Taken Type amlodipine 10 mg tablet 1 tab PO DAILY 06/07/21 06/07/21 06/07/21 History anastrozole 1 mg tablet 1 tab PO BEDTIME 06/07/21 06/07/21 06/06/21 History chlorthalidone 25 mg tablet 1 tab PO DAILY 06/07/21 06/07/21 06/07/21 History cholecalciferol (vitamin D3) 10 20 mcg PO DAILY 06/07/21 06/07/21 06/07/21 History mcg (400 unit) tablet (Vitamin D3) omeprazole 40 mg capsule,delayed 1 cap PO DAILY 06/07/21 06/07/21 06/07/21 History release Physical Exam Vital Signs and Narrative: Vital Signs: Last Vital Signs Temp 96.2 F L 06/07/21 13:33 Pulse 84 06/07/21 17:50 Resp 18 06/07/21 17:50 BP 142/72 H 06/07/21 17:50 Pulse Ox 97 06/07/21 17:50 BMI result Body Mass Index 33.6 Appearance: Alert.? Oriented X3.? not in distress.? Eyes: Pupils equal, round and reactive to light.? Sclera nonicteric.? ENT: Pharynx normal.? Moist mucous membranes. cvs: rrr, [id number] , no murmur res: clear to auscultation ,no rhonchii or wheezing abd: no rebound or guarding ,nt, bs present. ext pulses present , no cyanosis . neuro: axo3 , nonfocal. Results Labs CBC and Chem 7: 06/08/21 04:33 06/08/21 04:33 Labs: Laboratory Results - last 24 hr 06/07/21 06/07/21 06/07/21 14:15 14:15 14:15 MCV 81.9 MCH 26.2 L MCHC 32.0 RDW 13.2 Plt Count 362 MPV 9.3 L Immature Gran % (Auto) 0.5 H Neut % (Auto) 64.9 Lymph % (Auto) 23.5 [place] % (Auto) 10.0 Eos % (Auto) 0.7 Baso % (Auto) 0.4 Lymph # (Auto) 2.3 [place] # (Auto) 1.0 Eos # (Auto) 0.1 Baso # (Auto) 0.0 Abs Immat Gran (auto) 0.05 H Absolute Neuts (auto) 6.3 Absolute Nucleated RBC 0.000 Nucleated RBC % (auto) 0.0 PT 11.1 INR 1.0 APTT 31.8 D-Dimer High Sensitivty 306 Anion Gap 15 Estim Creat Clear Calc 46.8 Estimated GFR 47 Random Glucose 126 H Calcium 9.4 D COVID-19 (BRIJESH) COVID-19 Clin Com 06/07/21 17:06 MCV MCH MCHC RDW Plt Count MPV Immature Gran % (Auto) Neut % (Auto) Lymph % (Auto) [place] % (Auto) Eos % (Auto) Baso % (Auto) Lymph # (Auto) [place] # (Auto) Eos # (Auto) Baso # (Auto) Abs Immat Gran (auto) Absolute Neuts (auto) Absolute Nucleated RBC Nucleated RBC % (auto) PT INR APTT D-Dimer High Sensitivty Anion Gap Estim Creat Clear Calc Estimated GFR Random Glucose Calcium COVID-19 (BRIJESH) Negative COVID-19 Clin Com See Note Imaging Radiologist's Impressions: Impressions Chest X-Ray 06/07/21 14:09 IMPRESSION: No acute disease. Chest CTA 06/07/21 16:39 IMPRESSION: No evidence of acute pulmonary artery embolus. No evidence of thoracic aortic aneurysm or dissection. VTE: negative Assessment and Plan (1) Chest pain: Status: Acute (2) NSTEMI (non-ST elevated myocardial infarction): Status: Acute Plan 70 y/o F with chest pain 1. nstemi /unstable angina' Continue aspirin, statin, IV heparin Check lipid panel Cardio evaluation, echo 2. Hypertension: Continue amlodipine and chlorthalidone. 3. Breath history of breast cancer: Status post left breast surgery in 2017 , Continue anastrozole. 4. GERD: Continue omeprazole DVT prophylaxis with heparin. Above management discussed with patient and her daughter in line detail length they both understand and in agreement with the plan, time spent 70 minute, patient full code. Quality Stroke Does the patient have a stroke diagnosis?: No VTE Prior VTE?: No VTE Risk Level:: Medical - moderate - high VTE Device Contraindication: N/A - Device Ordered VTE Drug Contraindication: N/A - Med Ordered
[2021-06-07] MEDS: Heparin Sodium,Porcine 5,000 UNIT/ML VIAL 5000 UNIT IVPUSH (19:02)
[2021-06-07] MEDS: Heparin Sodium,Porcine/1/2NS 25,000 UNIT/250 ML IV.SOLN 10 UNIT IVCONT (19:07)
[2021-06-07 20:03] VITALS: BP 131/59; PULSE 84; RESP 12; TEMP 36.8; O2SAT 99
[2021-06-07] MEDS: Atorvastatin Calcium 80 MG TABLET PO (21:12)
[2021-06-07] MEDS: Anastrozole 1 MG TABLET PO (21:12)
[2021-06-08] VITALS (7 sets, daily range): BP systolic 112–145; BP diastolic 47–65; PULSE 68–84; RESP 12–20; TEMP 36.3–37.1; O2SAT 95–97
[2021-06-08 01:47] LABS: PTT Heparin Drip 127.3 SEC (53-77.9)
--- NOTE | 2021-06-08 02:57 | PC.NURSE ---
Patient's ptt heparin drip came back at 127.3. Notified at 0250 by RN who took result about what the lab result was. This policy writer sales immediately stopped the heparin drip per protocol and Ptt drawn hourly. Heparin drip rate was 11.61 and per protocol starting rate is 10 units/ml.
[2021-06-08 03:59] LABS: PTT Heparin Drip 84.8 SEC (53-77.9)
[2021-06-08 04:37] LABS: Hematocrit 31.2 % (37.0-47.0); Hemoglobin 10.3 g/dl (12.0-16.0); Mean Corpuscular Volume 81.9 fL (80.0-98.0); Platelet Count 285 X10*3/uL (160-400); Red Blood Count 3.81 X10*6/uL (4.20-5.50); Red Cell Distribution Width 13.3 % (11.0-16.0); White Blood Count 8.3 X10*3/uL (4.8-10.8)
[2021-06-08 04:46] LABS: PTT Heparin Drip 58.2 SEC (53-77.9)
[2021-06-08 05:05] LABS: Anion Gap 15 (12-20); Blood Urea Nitrogen 17 mg/dL (9-16); Calcium 8.3 mg/dL (8.4-10.2); Carbon Dioxide 24 mmol/L (22-29); Chloride 104 mmol/L (96-108); Cholesterol 188 mg/dL; Creatinine Clr Calc Pharmacy 58.9; Estimated Glomerular Filt Rate > 60; Glucose Random 136 mg/dL (60-115); HDL Cholesterol 52 mg/dL; LDL Cholesterol Calculated 121 mg/dl; Potassium 3.4 mmol/L (3.3-5.1); Sodium 140 mmol/L (135-145); Triglycerides 78 mg/dL
--- NOTE | 2021-06-08 05:34 | PC.NURSE ---
Patient's heparin drip was late restarting due to delay in lab draws due to this nurse with another critical patient. Heparin restarted per protocol as the correct rate of 6 units/kg/hr and verified by charge nurse. The initial rate was incorrect at 11.61 units/kg/hr. Patient's next draw should be at 1015
[2021-06-08] MEDS: Omeprazole 40 MG CAPSULE.DR PO (07:15)
[2021-06-08] MEDS: amLODIPine Besylate 10 MG TABLET PO (08:08)
[2021-06-08] MEDS: Aspirin Enteric Coated 81 MG TABLET.DR PO (08:08)
[2021-06-08] MEDS: hydroCHLOROthiazide 25 MG TABLET PO (08:08)
[2021-06-08] MEDS: Cholecalciferol (Vitamin D3) 10 MCG TABLET 20 MCG PO (08:09)
--- NOTE | 2021-06-08 08:48 | P.PNIM_ITS ---
Subjective Subjective Date of Service: 06/08/21 Interval History: nstemi , chest pain Review of Systems Denies any chest pain shortness of breath or abdominal pain or fever chills or cough or phlegm nausea vomiting Physical Exam Vital Signs: Vital Signs: Last Vital Signs Temp 97.6 F 06/08/21 02:35 Pulse 68 06/08/21 07:50 Resp 15 06/08/21 07:50 BP 112/55 L 06/08/21 07:50 Pulse Ox 95 06/08/21 07:50 BMI result Body Mass Index 33.6 Appearance: Alert.? Oriented X3.? not in distress.? Eyes: Pupils equal, round and reactive to light.? Sclera nonicteric.? ENT: Pharynx normal.? Moist mucous membranes. cvs: [id number], [id number] , no murmur res: clear to auscultation ,no rhonchii or wheezing abd: no rebound or guarding ,nt, bs present. ext pulses present , no cyanosis . neuro: axo3 , nonfocal. Objective Data Active Medications Amlodipine Besylate (Amlodipine Besylate 10 Mg Tablet) 10 mg PO DAILY [facility]; Protocol Last Admin: 06/08/21 08:08 Dose: 10 mg Documented by: ZACH Anastrozole (Anastrozole 1 Mg Tablet) 1 mg PO BEDTIME [facility] Last Admin: 06/07/21 21:12 Dose: 1 mg Documented by: SANDY Aspirin (Aspirin Enteric Coated 81 Mg Tablet.) 81 mg PO DAILY [facility] Last Admin: 06/08/21 08:08 Dose: 81 mg Documented by: ZACH Atorvastatin Calcium (Atorvastatin Calcium 80 Mg Tablet) 80 mg PO BEDTIME [facility] Last Admin: 06/07/21 21:12 Dose: 80 mg Documented by: SANDY Heparin Sodium (Porcine) (Heparin Sodium,Porcine 5,000 Unit/Ml Vial) 3,500 unit 40 unit/kg (3500 unit) IVPUSH PROTOCOL BOLUS PRN; Protocol PRN Reason: 40 unit/kg - Heparin Protocol Heparin Sodium (Porcine) (Heparin Sodium,Porcine 5,000 Unit/Ml Vial) 6,900 unit 80 unit/kg (6900 unit) IVPUSH PROTOCOL BOLUS PRN; Protocol PRN Reason: 80 unit/kg - Heparin Protocol Hydrochlorothiazide (Hydrochlorothiazide 25 Mg Tablet) 25 mg PO DAILY [facility] Last Admin: 06/08/21 08:08 Dose: 25 mg Documented by: ZACH Heparin Sodium/Sodium Chloride () 25,000 unit in 250 mls @ 0 mls/hr IVCONT .Q0M [facility]; Protocol Last Titration: 06/08/21 05:13 Dose: 6 units/kg/hr, 5.17 mls/hr Documented by: SANDY Cosigned by: CLYDE Omeprazole (Omeprazole 40 Mg Capsule.) 40 mg PO DAILY@0630 [facility] Last Admin: 06/08/21 07:15 Dose: 40 mg Documented by: SANDY Sodium Chloride (0.9 % Sodium Chloride Flush 3 Ml Syringe) 3 ml IVFLUSH QSHIFT [facility] Last Admin: 06/08/21 07:22 Dose: Not Given Documented by: MARIBELL Non-Admin Reason: Med Not Available Vitamin D (Cholecalciferol (Vitamin D3) 10 Mcg Tablet) 20 mcg PO DAILY [facility] Last Admin: 06/08/21 08:09 Dose: 10 mcg Documented by: ZACH Labs CBC & Chem 7: 06/08/21 04:33 06/08/21 04:33 Labs: Laboratory Results - last 24 hr 06/07/21 06/07/21 06/07/21 14:15 14:15 14:15 MCV 81.9 MCH 26.2 L MCHC 32.0 RDW 13.2 Plt Count 362 MPV 9.3 L Immature Gran % (Auto) 0.5 H Neut % (Auto) 64.9 Lymph % (Auto) 23.5 [place] % (Auto) 10.0 Eos % (Auto) 0.7 Baso % (Auto) 0.4 Lymph # (Auto) 2.3 [place] # (Auto) 1.0 Eos # (Auto) 0.1 Baso # (Auto) 0.0 Abs Immat Gran (auto) 0.05 H Absolute Neuts (auto) 6.3 Absolute Nucleated RBC 0.000 Nucleated RBC % (auto) 0.0 PT 11.1 INR 1.0 APTT 31.8 aPTT Heparin Protocol D-Dimer High Sensitivty 306 Anion Gap 15 Estim Creat Clear Calc 46.8 Estimated GFR 47 Random Glucose 126 H Calcium 9.4 D Triglycerides Cholesterol LDL Cholesterol, Calc HDL Cholesterol COVID-19 (BRIJESH) COVID-19 Clin Com 06/07/21 06/08/21 06/08/21 17:06 01:10 03:46 MCV MCH MCHC RDW Plt Count MPV Immature Gran % (Auto) Neut % (Auto) Lymph % (Auto) [place] % (Auto) Eos % (Auto) Baso % (Auto) Lymph # (Auto) [place] # (Auto) Eos # (Auto) Baso # (Auto) Abs Immat Gran (auto) Absolute Neuts (auto) Absolute Nucleated RBC Nucleated RBC % (auto) PT INR APTT aPTT Heparin Protocol 127.3 H* 84.8 H D D-Dimer High Sensitivty Anion Gap Estim Creat Clear Calc Estimated GFR Random Glucose Calcium Triglycerides Cholesterol LDL Cholesterol, Calc HDL Cholesterol COVID-19 (BRIJESH) Negative COVID-19 [employer] See Note 06/08/21 06/08/21 06/08/21 04:33 04:33 04:33 MCV 81.9 MCH 27.0 MCHC 33.0 RDW 13.3 Plt Count 285 MPV 9.0 L Immature Gran % (Auto) Neut % (Auto) Lymph % (Auto) [place] % (Auto) Eos % (Auto) Baso % (Auto) Lymph # (Auto) [place] # (Auto) Eos # (Auto) Baso # (Auto) Abs Immat Gran (auto) Absolute Neuts (auto) Absolute Nucleated RBC 0.000 Nucleated RBC % (auto) 0.0 PT INR APTT aPTT Heparin Protocol 58.2 D D-Dimer High Sensitivty Anion Gap 15 Estim Creat Clear Calc 58.9 Estimated GFR > 60 Random Glucose 136 H Calcium 8.3 L D Triglycerides 78 Cholesterol 188 LDL Cholesterol, Calc 121 HDL Cholesterol 52 COVID-19 (BRIJESH) COVID-19 Clin [employer] Assessment and Plan (1) NSTEMI (non-ST elevated myocardial infarction): Status: Acute (2) Chest pain: Status: Acute Plan 70 y/o F with chest pain 1. nstemi /unstable angina' Continue aspirin, statin, IV heparin echo cardio evaluation- continue above management , moniter ptt/ptt as per protocol. Possible transfer to [facility] over the weekend. 2. Hypertension:? Continue amlodipine and chlorthalidone. 3. Breath history of breast cancer:? Status post left breast surgery in 2017 , Continue anastrozole. 4. GERD: Continue omeprazole 5. HLP: on statin DVT prophylaxis with heparin. Quality Stroke Does the patient have a stroke diagnosis?: No VTE Prior VTE?: No VTE Risk Level:: Medical - moderate - high VTE Device Contraindication: N/A - Device Ordered VTE Drug Contraindication: N/A - Med Ordered
--- NOTE | 2021-06-08 08:49 | P.DS_ITS ---
DS: Providers Provider Date of Service: 06/10/21 Date of admission: 06/07/21 18:15 Primary care physician: Felicia Medellin MD Consults: 06/07/21 18:34 Consult to Cardiology Routine Consulting Provider: [facility] Cardiovascular Services Reason for consultation: NSTEMI Has provider been notified: No DS: Diagnosis Discharge Diagnosis (1) Chest pain: Status: Acute (2) NSTEMI (non-ST elevated myocardial infarction): Status: Acute DS: Summary Hospital Course Hospital Course: date of service and discharge 06/10/21, patient was being treated for nstemi as below , awaiting for transfer to [facility]. 70 years old female came in for evaluation of chest pain-Chest pain started at 05:00, lasted for about 3 hours,? dull aching pain at to the whole entire chest and neck as well as back, she says she thought probably sec to stomach upset, denies any? revealing factor or? relieving factor, never had this pain before, give her 1 pill of antibiotic (Augmentin) left over and some pain medication and patient felt better afterwards, she says than her family insisted her to come to the hospital for checkup. She says that she did not had any other episode of chest pain afterwards. No recent travel, no lower extremity swelling,No recent trauma ? chest. Denies any or shortness of breath or abdominal pain or fever or chills or nausea or vomiting Denies any cough Denies any weakness or numbness. Workup in the emergency room: CTA negative for pulmonary embolism, chest x-ray seems fine, troponin 47 and 49 flat range simultaneously. EKG NSR with RBBB Hospital course:Patient came to the hospital because chest pain, found to have elevated troponin-possible NSTEMI: Started on IV heparin drip and completed 48 hrs heparin drip, aspirin, statin-patient possible need to going to [facility] for further management. discussed with cardiology -stop heparin drip -completed as above. Above management discussed with the patient in detail length she understand and in agreement with the above plan, time spent 50 minutes and 50% time spent on counseling. Significant findings: As above. Procedures performed: None. Treatment and response: As above. Complications: None. Time Spent with Patient Time attestation: Total time spent providing and/or coordinating discharge services: Discharge coordination time: Greater than 30 minutes Quality: Stroke Does the patient have a stroke diagnosis?: No Physical Exam Vital Signs: Vital Signs: Last Vital Signs Temp 97.6 F 06/08/21 02:35 Pulse 68 06/08/21 07:50 Resp 15 06/08/21 07:50 BP 112/55 L 06/08/21 07:50 Pulse Ox 95 06/08/21 07:50 BMI result Body Mass Index 33.6 Appearance: Alert.? Oriented X3.? not in distress.? Eyes: Pupils equal, round and reactive to light.? Sclera nonicteric.? ENT: Pharynx normal.? Moist mucous membranes. cvs: rrr, [id number] , no murmur res: clear to auscultation ,no rhonchii or wheezing abd: no rebound or guarding ,nt, bs present. ext pulses present , no cyanosis ,Gait well balanced well coordinated. neuro: axo3 , nonfocal. DS: Data Data Completed and Pending Labs on day of discharge: Laboratory Results - last 24 hr 06/07/21 06/07/21 06/07/21 14:15 14:15 14:15 WBC 9.8 RBC 4.58 Hgb 12.0 Hct 37.5 MCV 81.9 MCH 26.2 L MCHC 32.0 RDW 13.2 Plt Count 362 MPV 9.3 L Immature Gran % (Auto) 0.5 H Neut % (Auto) 64.9 Lymph % (Auto) 23.5 [place] % (Auto) 10.0 Eos % (Auto) 0.7 Baso % (Auto) 0.4 Lymph # (Auto) 2.3 [place] # (Auto) 1.0 Eos # (Auto) 0.1 Baso # (Auto) 0.0 Abs Immat Gran (auto) 0.05 H Absolute Neuts (auto) 6.3 Absolute Nucleated RBC 0.000 Nucleated RBC % (auto) 0.0 PT INR APTT aPTT Heparin Protocol D-Dimer High Sensitivty Sodium 139 Potassium 3.7 Chloride 101 Carbon Dioxide 27 Anion Gap 15 BUN 18 H Creatinine 1.15 Estim Creat Clear Calc 46.8 Estimated GFR 47 Random Glucose 126 H Calcium 9.4 D Troponin I High Sens 47.1 H Triglycerides Cholesterol LDL Cholesterol, Calc HDL Cholesterol COVID-19 (BRIJESH) COVID-19 Clin Com 06/07/21 06/07/2122 14:15 17:06 17:06 WBC RBC Hgb Hct MCV MCH MCHC RDW Plt Count MPV Immature Gran % (Auto) Neut % (Auto) Lymph % (Auto) [place] % (Auto) Eos % (Auto) Baso % (Auto) Lymph # (Auto) [place] # (Auto) Eos # (Auto) Baso # (Auto) Abs Immat Gran (auto) Absolute Neuts (auto) Absolute Nucleated RBC Nucleated RBC % (auto) PT 11.1 INR 1.0 APTT 31.8 aPTT Heparin Protocol D-Dimer High Sensitivty 306 Sodium Potassium Chloride Carbon Dioxide Anion Gap BUN Creatinine Estim Creat Clear Calc Estimated GFR Random Glucose Calcium Troponin I High Sens 49.7 H Triglycerides Cholesterol LDL Cholesterol, Calc HDL Cholesterol COVID-19 (BRIJESH) Negative COVID-19 Clin Com See Note 06/08/21 06/08/21 06/08/21 01:10 03:46 04:33 WBC RBC Hgb Hct MCV MCH MCHC RDW Plt Count MPV Immature Gran % (Auto) Neut % (Auto) Lymph % (Auto) [place] % (Auto) Eos % (Auto) Baso % (Auto) Lymph # (Auto) [place] # (Auto) Eos # (Auto) Baso # (Auto) Abs Immat Gran (auto) Absolute Neuts (auto) Absolute Nucleated RBC Nucleated RBC % (auto) PT INR APTT aPTT Heparin Protocol 127.3 H* 84.8 H D D-Dimer High Sensitivty Sodium 140 Potassium 3.4 Chloride 104 Carbon Dioxide 24 Anion Gap 15 BUN 17 H Creatinine 0.91 Estim Creat Clear Calc 58.9 Estimated GFR > 60 Random Glucose 136 H Calcium 8.3 L D Troponin I High Sens Triglycerides 78 Cholesterol 188 LDL Cholesterol, Calc 121 HDL Cholesterol 52 COVID-19 (BRIJESH) COVID-19 Clin Com 06/08/21 06/08/21 04:33 04:33 WBC 8.3 RBC 3.81 L Hgb 10.3 L Hct 31.2 L MCV 81.9 MCH 27.0 MCHC 33.0 RDW 13.3 Plt Count 285 MPV 9.0 L Immature Gran % (Auto) Neut % (Auto) Lymph % (Auto) [place] % (Auto) Eos % (Auto) Baso % (Auto) Lymph # (Auto) [place] # (Auto) Eos # (Auto) Baso # (Auto) Abs Immat Gran (auto) Absolute Neuts (auto) Absolute Nucleated RBC 0.000 Nucleated RBC % (auto) 0.0 PT INR APTT aPTT Heparin Protocol 58.2 D D-Dimer High Sensitivty Sodium Potassium Chloride Carbon Dioxide Anion Gap BUN Creatinine Estim Creat Clear Calc Estimated GFR Random Glucose Calcium Troponin I High Sens Triglycerides Cholesterol LDL Cholesterol, Calc HDL Cholesterol COVID-19 (BRIJESH) COVID-19 Clin Com Additional Comments Additional comments: ?CT/CT angio chest PE protocol IMPRESSION: No evidence of acute pulmonary artery embolus. ? No evidence of thoracic aortic aneurysm or dissection. Discharge Plan Discharge Patient Disposition: Xfer Acute Care Hospital Discharge Diagnosis: nstemi Referrals: [facility] [Outside] - 1 Week Felicia Medellin MD [Primary Care Provider] - 1 Week Discharge Medications: New aspirin 81 mg Tablet,Delayed Release (Dr/Ec) 81 mg PO DAILY Qty: 1 0RF atorvastatin 80 mg Tablet 80 mg PO BEDTIME Qty: 1 0RF Continued anastrozole 1 mg tablet 1 tab PO BEDTIME 0RF chlorthalidone 25 mg tablet 1 tab PO DAILY 0RF omeprazole 40 mg capsule,delayed release(DR/EC) 1 cap PO DAILY 0RF amlodipine 10 mg tablet 1 tab PO DAILY 0RF cholecalciferol (vitamin D3) [Vitamin D3] 10 mcg (400 unit) Tablet 20 mcg PO DAILY 0RF Discharge Orders: Discharge Order (Routine); Ordered 06/10/21 Ordered By: Eugenio Schwarz Diet: advance to usual diet Activity on Discharge: As tolerated Stand Alone Forms: Patient Portal Discharge page Care Plan Goals: Patient came to the hospital because chest pain, found to have elevated troponin-possible NSTEMI: Started on IV heparin drip, aspirin, statin-patient possible need to going to [facility] for further management. Health Concerns: As above. Plan of Treatment: As above. Assessment: As above. Patient Instructions: Atorvastatin (By mouth) Discharge Date/Time: 06/10/21 14:50
--- NOTE | 2021-06-08 08:56 | MHC.CM.PN ---
Patient transferred to [facility] before being seen by case management.
--- NOTE | 2021-06-08 09:00 | CA_ITS ---
Transthoracic Echocardiogram Patient (Last, First, Middle): MERCEDES HENNING, Gender: Female Date of : 1950 Age: 70 Procedure Date: 06/08/2021 Procedure Type: Transthoracic Echocardiogram Location: ER Height: 160.02 cm Weight: 85.73 kg BSA: 1.89 m2 Heart Rate: bpm BP: 121 / 47 mmHg Merchandising Consultant: Referring MD: Eugenio Schwarz MD Symptoms: NSTEMI Study Quality: Good ECG Rhythm: Sinus Conclusions: - The left ventricular systolic function is normal. The calculated ejection fraction is 69% by biplane method. - No obvious valvular pathology seen on this study. Findings Left Ventricle Normal left ventricular cavity size. There is mildly increased left ventricular wall thickness. The left ventricular systolic function is normal. The calculated ejection fraction is 69% by biplane method. There is no evidence of regional wall motion abnormalities. Diastolic function is normal for age. Right Ventricle Normal right ventricular cavity size and systolic function. Atria Both atria are normal in size. Aortic Valve There is a normal trileaflet aortic valve. There is no aortic valve stenosis. There is no aortic valve regurgitation. Mitral Valve The mitral valve appears normal. There is trace mitral valve regurgitation. There is no mitral valve stenosis. Pulmonic Valve The pulmonic valve was not well visualized. There is trace pulmonic valve regurgitation. Tricuspid Valve Normal tricuspid valve structure. There is trace tricuspid valve regurgitation. The pulmonary artery systolic pressure is normal. Great Vessels The aortic annulus, sinuses of valsalva, and asc aorta are normal in size. Venous The inferior vena cava is normal in size and collapses greater than 50% with inspiration. Pericardium/Pleural There is no evidence of pericardial effusion. Prior Study Comparison No prior study available for comparison. Recommendations, Care & Conclusions No obvious valvular pathology seen on this study. Measurements 2D Linear Measurements IVSd: 1.14 0.6-0.9/0.6-1.0 cm LVIDd: 4.27 3.9-5.3/4.2-5.9 cm LVIDd Index: 2.26 2.4-3.2/2.2-3.1 cm/m2 LVIDs: 2.34 2.0-3.6 cm LVPWd: 1.13 0.7-1.1 cm Ao Root: 3.00 2.1-3.5 cm LA Diam: 3.50 2.7-3.8/3.0-4.0 cm LAIDs Index: 1.85 1.5-2.3 cm/m2 LV Mass: 209.95 67-162/88-224 g LV Mass Index: 111.08 43-95/49-115 g/m2 LVOT Diam: 2.10 3.0+(-)1.3 cm 2D Systolic Function EF 4C: 58.80 >55% EF 2C: 73.90 >55% EF BiP: 69.30 >55% Mitral Valve MV Pk E: 1.03 MV PK A: 0.96 MV Decel Time: 194.00 E/A: 1.10 E'Lateral: 11.40 E'Medial: 6.53 E/E' Med: 15.80 E/E' Lat: 9.00 PHT: 57.00 MVA PHT: 3.86 Decel Stearns: 5.31 Aortic Valve AoV Pk Moo: 1.72 AoV Mn Moo: 1.10 AoV VTI: 0.43 AoV Pk Grad: 12.00 Aov Mn Grad: 5.00 CHAUNCEY Cont.VTI: 2.44 LVOT LVOT Pk Moo: 1.15 LVOT Mn Moo: 0.81 LVOT VTI: 0.30 LVOT Pk Grad: 5.00 LVOT Mn Grad: 3.00 LVOT Diam: 2.10 LVOT Area: 3.46 Diastolic Function MV Pk E: 1.03 MV Pk A: 0.96 E/A: 1.10 E'Medial: 6.53 E/E' Med: 15.80 E' Laterial: 11.40 E/E' Lat: 9.00 Right Ventricle TAPSE (mm): 24.00 TVS' Moo: 10.00 Tricuspid Valve TR Pk Moo: 2.03 TR Pk Grad: 16.00 Great Vessels Aorta Ao Root-2D: 3.00 2.0-3.7 cm Ao Asc: 3.60 2.1-3.4 cm Pulmonary Valve PV Pk Moo: 1.29 Peak PV Grad: 7.00 Updated in Other Vendor System with Status of Final Aureliano Lu MD electronically signed on 06/08/2021 12:44:53 PM with status of Final
[2021-06-08 09:19] LABS: Alanine Aminotransferase 8 U/L (0-31); Albumin Level 3.2 g/dL (3.5-5.0); Alkaline Phosphatase 96 U/L (39-117); Aspartate Amino Transferase 14 U/L (5-31); Bilirubin Direct 0.2 mg/dL (0.0-0.5); Bilirubin Total 0.5 mg/dL (0.0-1.0)
[2021-06-08 11:08] LABS: PTT Heparin Drip 37.2 SEC (53-77.9)
--- NOTE | 2021-06-08 11:11 | PM.CNCAR ---
History of Present Illness History of Present Illness Date of Service: 06/08/21 Chief complaint: unstable angina Narrative: This is a cardiology consultation regarding chest pain. Patient does not have any known cardiac problems. She has hypertension. She also has a history of breast cancer for which she went surgery on the left breast several years ago. She states that yesterday morning, she started having chest pain across the front of the chest at around 5-6 a.m.. At that time, she was apparently doing her mandaen prayer. Then it seems that she also had some discomfort in the neck as well as back. The actual duration is not very clear as is language barrier but possibly a couple hours or so. Then the pain gradually improved. Currently she is pain-free. Troponins were checked and they were abnormal and hence she has been admitted with a diagnosis of NSTEMI. Review of Systems Review of Systems: Yes all other systems are reviewed and are negative Cardiovascular: Cardiovascular: Reports as per HPI, Reports no additional cardiovascular complaints, Denies acrocyanosis, Denies cool extremities, Reports chest pain, Denies diaphoresis, Denies syncope, Denies claudication, Denies leg edema, Denies lightheadedness, Denies palpitations and Denies dyspnea Respiratory: Respiratory: Denies dyspnea Neurologic: Denies syncope Endocrine: Endocrine: Denies palpitations PMFSH Past Medical History Medical History Breast CA Hypertension Family History Pertinent family history: Patient denies any family history of major cardiac issues. Surgical History Surgical History H/O mastectomy Social History Social History Alcohol intake: unknown Patient Tobacco Use Status: Tobacco use Unknown Use of substances other than those prescribed or required for medical reasons: Unknown Advance Directives: Yes Advance Directives Information Provided: Yes Advance Directives on File: No Meds Allergies Allergy/AdvReac Type Severity Reaction Status Date / Time ibuprofen Allergy Anaphylaxis Verified 06/07/21 17:50 lisinopril AdvReac Cough Verified 06/07/21 17:49 Active Medications: Current Medications Amlodipine Besylate (Amlodipine Besylate 10 Mg Tablet) 10 mg PO DAILY [facility]; Protocol Last Admin: 06/08/21 08:08 Dose: 10 mg Documented by: Anastrozole (Anastrozole 1 Mg Tablet) 1 mg PO BEDTIME [facility] Last Admin: 06/07/21 21:12 Dose: 1 mg Documented by: Aspirin (Aspirin Enteric Coated 81 Mg Tablet.) 81 mg PO DAILY [facility] Last Admin: 06/08/21 08:08 Dose: 81 mg Documented by: Atorvastatin Calcium (Atorvastatin Calcium 80 Mg Tablet) 80 mg PO BEDTIME [facility] Last Admin: 06/07/21 21:12 Dose: 80 mg Documented by: Heparin Sodium (Porcine) (Heparin Sodium,Porcine 5,000 Unit/Ml Vial) 3,500 unit 40 unit/kg (3500 unit) IVPUSH PROTOCOL BOLUS PRN; Protocol PRN Reason: 40 unit/kg - Heparin Protocol Heparin Sodium (Porcine) (Heparin Sodium,Porcine 5,000 Unit/Ml Vial) 6,900 unit 80 unit/kg (6900 unit) IVPUSH PROTOCOL BOLUS PRN; Protocol PRN Reason: 80 unit/kg - Heparin Protocol Hydrochlorothiazide (Hydrochlorothiazide 25 Mg Tablet) 25 mg PO DAILY [facility] Last Admin: 06/08/21 08:08 Dose: 25 mg Documented by: Heparin Sodium/Sodium Chloride () 25,000 unit in 250 mls @ 0 mls/hr IVCONT .Q0M [facility]; Protocol Last Titration: 06/08/21 05:13 Dose: 6 units/kg/hr, 5.17 mls/hr Documented by: Omeprazole (Omeprazole 40 Mg Capsule.) 40 mg PO DAILY@0630 [facility] Last Admin: 06/08/21 07:15 Dose: 40 mg Documented by: Sodium Chloride (0.9 % Sodium Chloride Flush 3 Ml Syringe) 3 ml IVFLUSH QSHIFT [facility] Last Admin: 06/08/21 07:22 Dose: Not Given Documented by: Vitamin D (Cholecalciferol (Vitamin D3) 10 Mcg Tablet) 20 mcg PO DAILY [facility] Last Admin: 06/08/21 08:09 Dose: 10 mcg Documented by: Home Medications Medication Instructions Recorded Confirmed Last Taken Type amlodipine 10 mg tablet 1 tab PO DAILY 06/07/21 06/07/21 06/07/21 History anastrozole 1 mg tablet 1 tab PO BEDTIME 06/07/21 06/07/21 06/06/21 History chlorthalidone 25 mg tablet 1 tab PO DAILY 06/07/21 06/07/21 06/07/21 History cholecalciferol (vitamin D3) 10 20 mcg PO DAILY 06/07/21 06/07/21 06/07/21 History mcg (400 unit) tablet (Vitamin D3) omeprazole 40 mg capsule,delayed 1 cap PO DAILY 06/07/21 06/07/21 06/07/21 History release Physical Exam Vital Signs: Vital Signs: Last Vital Signs Temp 97.6 F 06/08/21 02:35 Pulse 68 06/08/21 07:50 Resp 15 06/08/21 07:50 BP 112/55 L 06/08/21 07:50 Pulse Ox 95 06/08/21 07:50 BMI result Body Mass Index 33.6 Const: General: comfortable HENMT: Other: Unremarkable Neck: Neck: Yes normal visual inspection Chest: Chest palpation & inspection: normal inspection of the chest Resp: Auscultation: clear to auscultation bilaterally Cardio: Palpation: normal PMI Heart sounds: S1 normal heart sound present, S2 normal heart sound present, no gallops, no murmurs and no rubs GI: Palpation (GI): Soft to palpation Back/Spine/Pelvis: Other: unremarkable Skin: Lesions: other Neuro: General: other Extrem: General: Yes other Psych: Mental Status: other Objective Labs and Meds Result diagrams: 06/08/21 04:33 06/08/21 04:33 Lab results: Laboratory Results - last 24 hr 06/07/21 06/07/21 06/07/21 14:15 14:15 14:15 WBC 9.8 RBC 4.58 Hgb 12.0 Hct 37.5 MCV 81.9 MCH 26.2 L MCHC 32.0 RDW 13.2 Plt Count 362 MPV 9.3 L Immature Gran % (Auto) 0.5 H Neut % (Auto) 64.9 Lymph % (Auto) 23.5 Glenn % (Auto) 10.0 Eos % (Auto) 0.7 Baso % (Auto) 0.4 Lymph # (Auto) 2.3 Glenn # (Auto) 1.0 Eos # (Auto) 0.1 Baso # (Auto) 0.0 Abs Immat Gran (auto) 0.05 H Absolute Neuts (auto) 6.3 Absolute Nucleated RBC 0.000 Nucleated RBC % (auto) 0.0 PT INR APTT aPTT Heparin Protocol D-Dimer High Sensitivty Sodium 139 Potassium 3.7 Chloride 101 Carbon Dioxide 27 Anion Gap 15 BUN 18 H Creatinine 1.15 Estim Creat Clear Calc 46.8 Estimated GFR 47 Random Glucose 126 H Calcium 9.4 D Total Bilirubin Direct Bilirubin AST ALT Alkaline Phosphatase Troponin I High Sens 47.1 H Total Protein Albumin Triglycerides Cholesterol LDL Cholesterol, Calc HDL Cholesterol COVID-19 (BRIJESH) COVID-19 Clin Com 06/07/21 06/07/21 06/07/21 14:15 17:06 17:06 WBC RBC Hgb Hct MCV MCH MCHC RDW Plt Count MPV Immature Gran % (Auto) Neut % (Auto) Lymph % (Auto) Glenn % (Auto) Eos % (Auto) Baso % (Auto) Lymph # (Auto) Glenn # (Auto) Eos # (Auto) Baso # (Auto) Abs Immat Gran (auto) Absolute Neuts (auto) Absolute Nucleated RBC Nucleated RBC % (auto) PT 11.1 INR 1.0 APTT 31.8 aPTT Heparin Protocol D-Dimer High Sensitivty 306 Sodium Potassium Chloride Carbon Dioxide Anion Gap BUN Creatinine Estim Creat Clear Calc Estimated GFR Random Glucose Calcium Total Bilirubin Direct Bilirubin AST ALT Alkaline Phosphatase Troponin I High Sens 49.7 H Total Protein Albumin Triglycerides Cholesterol LDL Cholesterol, Calc HDL Cholesterol COVID-19 (BRIJESH) Negative COVID-19 Clin Com See Note 06/08/21 06/08/21 06/08/21 01:10 03:46 04:33 WBC RBC Hgb Hct MCV MCH MCHC RDW Plt Count MPV Immature Gran % (Auto) Neut % (Auto) Lymph % (Auto) Glenn % (Auto) Eos % (Auto) Baso % (Auto) Lymph # (Auto) Glenn # (Auto) Eos # (Auto) Baso # (Auto) Abs Immat Gran (auto) Absolute Neuts (auto) Absolute Nucleated RBC Nucleated RBC % (auto) PT INR APTT aPTT Heparin Protocol 127.3 H* 84.8 H D D-Dimer High Sensitivty Sodium 140 Potassium 3.4 Chloride 104 Carbon Dioxide 24 Anion Gap 15 BUN 17 H Creatinine 0.91 Estim Creat Clear Calc 58.9 Estimated GFR > 60 Random Glucose 136 H Calcium 8.3 L D Total Bilirubin 0.5 Direct Bilirubin 0.2 AST 14 ALT 8 Alkaline Phosphatase 96 Troponin I High Sens Total Protein 6.0 L Albumin 3.2 L Triglycerides 78 Cholesterol 188 LDL Cholesterol, Calc 121 HDL Cholesterol 52 COVID-19 (BRIJESH) COVID-19 [employer] Com 06/08/21 06/08/21 06/08/21 04:33 04:33 10:24 WBC 8.3 RBC 3.81 L Hgb 10.3 L Hct 31.2 L MCV 81.9 MCH 27.0 MCHC 33.0 RDW 13.3 Plt Count 285 MPV 9.0 L Immature Gran % (Auto) Neut % (Auto) Lymph % (Auto) Glenn % (Auto) Eos % (Auto) Baso % (Auto) Lymph # (Auto) Glenn # (Auto) Eos # (Auto) Baso # (Auto) Abs Immat Gran (auto) Absolute Neuts (auto) Absolute Nucleated RBC 0.000 Nucleated RBC % (auto) 0.0 PT INR APTT aPTT Heparin Protocol 58.2 D 37.2 L D D-Dimer High Sensitivty Sodium Potassium Chloride Carbon Dioxide Anion Gap BUN Creatinine Estim Creat Clear Calc Estimated GFR Random Glucose Calcium Total Bilirubin Direct Bilirubin AST ALT Alkaline Phosphatase Troponin I High Sens Total Protein Albumin Triglycerides Cholesterol LDL Cholesterol, Calc HDL Cholesterol COVID-19 (BRIJESH) COVID-19 Clin Com ECG Interpretation: EKG with sinus rhythm at 75/Min; right bundle-branch block pattern. Imaging Radiologist's impression: Impressions Chest X-Ray 06/07/21 14:09 IMPRESSION: No acute disease. Chest CTA 06/07/21 16:39 IMPRESSION: No evidence of acute pulmonary artery embolus. No evidence of thoracic aortic aneurysm or dissection. VTE: negative Assessment and Plan (1) NSTEMI (non-ST elevated myocardial infarction): Status: Acute Plan High sensitivity troponins are elevated at 47 and 49. CTA shows no evidence of pulmonary bothersome. From the cardiac aspect, coronary artery calcifications seen. She clearly had a non ST elevation myocardial infarction. At this time, keep her on heparin drip. Continue aspirin, high-dose statins. Blood pressure medications. Will need transfer to [facility] for cardiac catheterization. Timing to be decided. Will check with [facility] and follow up with you regarding transferring today or this weekend. Procedures Date of Service Date of Service: 06/08/21
[2021-06-08] MEDS: Heparin Sodium,Porcine 5,000 UNIT/ML VIAL 3500 UNIT IVPUSH ×2 (11:52→22:51)
--- NOTE | 2021-06-08 12:58 | PC.NURSE ---
assumed care at 0700. Has no experienced chest pain or SOB throughout day, had echo earlier, waiting on results. ? [place] [facility]. Heparin drip titrated per protocol
[2021-06-08 16:51] LABS: PTT Heparin Drip 82.9 SEC (53-77.9)
[2021-06-08 17:30] LABS: Troponin-I High Sensitivity 19.1 ng/L (<3.5-17.0)
[2021-06-08] MEDS: Atorvastatin Calcium 80 MG TABLET PO (22:32)
[2021-06-08 22:36] LABS: PTT Heparin Drip 44.6 SEC (53-77.9)
--- NOTE | 2021-06-09 00:43 | PC.NURSE ---
report given to overflow. Pt to unit at this time. pt denies complaints upon leaving.
--- NOTE | 2021-06-09 01:21 | PC.NURSE ---
REPORT TO DAMIR DERAS. PT TO FLOOR AT THIS TIME IN NAD.
[2021-06-09 02:00] VITALS: BP 158/69; PULSE 68; RESP 18; TEMP 36.9; O2SAT 97
[2021-06-09 04:55] LABS: PTT Heparin Drip 100.8 SEC (53-77.9)
[2021-06-09] MEDS: Omeprazole 40 MG CAPSULE.DR PO (05:57)
[2021-06-09 07:28] VITALS: BP 133/69; PULSE 56; RESP 20; TEMP 37; O2SAT 95
[2021-06-09] MEDS: Heparin Sodium,Porcine/1/2NS 25,000 UNIT/250 ML IV.SOLN 4.31 UNIT IVCONT (07:46)
--- NOTE | 2021-06-09 07:54 | HO.PM.IMPN ---
Subjective Subjective Date of Service: 06/09/21 Interval History: nstemi Review of Systems chest pain improved , Denies any shortness of breath or abdominal pain or fever or chills or nausea or vomiting Denies any cough Denies any weakness or numbness. Physical Exam Vital Signs: Vital Signs: Last Vital Signs Temp 98.6 F 06/09/21 07:28 Pulse 56 06/09/21 07:28 Resp 20 06/09/21 07:28 BP 133/69 06/09/21 07:28 Pulse Ox 95 06/09/21 07:28 BMI result Body Mass Index 33.6 Appearance: Alert.? Oriented X3.? not in distress.? Eyes: Pupils equal, round and reactive to light.? Sclera nonicteric.? ENT: Pharynx normal.? Moist mucous membranes. cvs: rrr, [id number] , no murmur res: clear to auscultation ,no rhonchii or wheezing abd: no rebound or guarding ,nt, bs present. ext pulses present , no cyanosis . neuro: axo3 , nonfocal. Objective Data Active Medications Amlodipine Besylate (Amlodipine Besylate 10 Mg Tablet) 10 mg PO DAILY [facility]; Protocol Last Admin: 06/08/21 08:08 Dose: 10 mg Documented by: ZACH Anastrozole (Anastrozole 1 Mg Tablet) 1 mg PO BEDTIME [facility] Last Admin: 06/08/21 22:33 Dose: Not Given Documented by: RITIKA Non-Admin Reason: Med Not Available Aspirin (Aspirin Enteric Coated 81 Mg Tablet.) 81 mg PO DAILY [facility] Last Admin: 06/08/21 08:08 Dose: 81 mg Documented by: ZACH Atorvastatin Calcium (Atorvastatin Calcium 80 Mg Tablet) 80 mg PO BEDTIME [facility] Last Admin: 06/08/21 22:32 Dose: 80 mg Documented by: RITIKA Heparin Sodium (Porcine) (Heparin Sodium,Porcine 5,000 Unit/Ml Vial) 3,500 unit 40 unit/kg (3500 unit) IVPUSH PROTOCOL BOLUS PRN; Protocol PRN Reason: 40 unit/kg - Heparin Protocol Last Admin: 06/08/21 22:51 Dose: 3,500 unit Documented by: RITIKA Heparin Sodium (Porcine) (Heparin Sodium,Porcine 5,000 Unit/Ml Vial) 6,900 unit 80 unit/kg (6900 unit) IVPUSH PROTOCOL BOLUS PRN; Protocol PRN Reason: 80 unit/kg - Heparin Protocol Hydrochlorothiazide (Hydrochlorothiazide 25 Mg Tablet) 25 mg PO DAILY [facility] Last Admin: 06/08/21 08:08 Dose: 25 mg Documented by: ZACH Heparin Sodium/Sodium Chloride () 25,000 unit in 250 mls @ 0 mls/hr IVCONT .Q0M [facility]; Protocol Last Admin: 06/09/21 07:46 Dose: 5 units/kg/hr, 4.31 mls/hr Documented by: ASHLY Cosigned by: DANDRE Omeprazole (Omeprazole 40 Mg Capsule.Dr) 40 mg PO DAILY@0630 [facility] Last Admin: 06/09/21 05:57 Dose: 40 mg Documented by: ANNAMARIE Sodium Chloride (0.9 % Sodium Chloride Flush 3 Ml Syringe) 3 ml IVFLUSH QSHIFT [facility] Last Admin: 06/09/21 02:03 Dose: Not Given Documented by: ANNAMARIE Non-Admin Reason: IV Running Vitamin D (Cholecalciferol (Vitamin D3) 10 Mcg Tablet) 20 mcg PO DAILY [facility] Last Admin: 06/08/21 08:09 Dose: 10 mcg Documented by: ZACH Labs CBC & Chem 7: 06/08/21 04:33 06/08/21 04:33 Labs: Laboratory Results - last 24 hr 06/08/21 06/08/21 06/08/21 04:33 10:24 16:28 aPTT Heparin Protocol 37.2 L D 82.9 H D Total Bilirubin 0.5 Direct Bilirubin 0.2 AST 14 ALT 8 Alkaline Phosphatase 96 Total Protein 6.0 L Albumin 3.2 L 06/08/21 06/09/21 22:17 04:39 aPTT Heparin Protocol 44.6 L D 100.8 H D Total Bilirubin Direct Bilirubin AST ALT Alkaline Phosphatase Total Protein Albumin Assessment and Plan (1) NSTEMI (non-ST elevated myocardial infarction): Status: Acute (2) Chest pain: Status: Acute Plan 70 y/o F with chest pain 1. nstemi /unstable angina' Continue aspirin, statin, IV heparin echo: Left Ventricle Normal left ventricular cavity size.? There is mildly increased left ventricular wall thickness.? The left ventricular systolic function is normal.? The calculated ejection fraction is 69% by biplane method.? There is no evidence of regional wall motion abnormalities.? Diastolic function is normal for age. cardio evaluation- continue above management , moniter ptt/ptt as per protocol. Possible transfer to [facility] over the weekend. 2. Hypertension:? Continue amlodipine and hold chlorthalidone in anticipation may need cardiac cath and iv contrast. 3. Breath history of breast cancer:? Status post left breast surgery in 2017 , Continue anastrozole. 4. GERD: Continue omeprazole 5. HLP: on statin DVT prophylaxis with heparin. Quality Stroke Does the patient have a stroke diagnosis?: No VTE Prior VTE?: No VTE Risk Level:: Medical - moderate - high VTE Device Contraindication: N/A - Device Ordered VTE Drug Contraindication: N/A - Med Ordered
[2021-06-09] MEDS: hydroCHLOROthiazide 25 MG TABLET PO (09:06)
[2021-06-09] MEDS: Aspirin Enteric Coated 81 MG TABLET.DR PO (09:06)
[2021-06-09] MEDS: Cholecalciferol (Vitamin D3) 10 MCG TABLET 20 MCG PO (09:06)
[2021-06-09] MEDS: amLODIPine Besylate 10 MG TABLET PO (09:06)
--- NOTE | 2021-06-09 09:27 | MHC.CM.PN ---
CM spoke with both Patient's Son/HCP/Chance @[phone] and [employer]/Carmen @ [phone]. Patient lives in a house with her Son and [id number] and she is functionally independent. Home/no services is the goal for dc and CM has initiated and will follow for dc planning. Patient has received Moderna vax X3 and her PCP is DR. Felicia Medellin.
[2021-06-09 11:04] VITALS: BP 152/71; PULSE 65; RESP 20; TEMP 36.7; O2SAT 95
--- NOTE | 2021-06-09 11:26 | PM.PNCARD ---
Subjective Subjective Date of Service: 06/09/21 Interval history: No further angina. Review of Systems Review of Systems Yes all other systems are reviewed and are negative Cardiovascular: Reports as per HPI, Reports no additional cardiovascular complaints, Denies acrocyanosis, Denies cool extremities, Reports chest pain, Denies diaphoresis, Denies syncope, Denies claudication, Denies leg edema, Denies lightheadedness, Denies palpitations and Denies dyspnea Respiratory: Denies dyspnea Denies syncope Endocrine: Denies palpitations Physical Exam Vital Signs: Last Vital Signs Temp 98.0 F 06/09/21 11:04 Pulse 65 06/09/21 11:04 Resp 20 06/09/21 11:04 BP 152/71 H 06/09/21 11:04 Pulse Ox 95 06/09/21 11:04 BMI result Body Mass Index 33.6 Const General: comfortable HENMT Other: Unremarkable Neck Neck: Yes normal visual inspection Chest Chest palpation & inspection: normal inspection of the chest Resp Auscultation: clear to auscultation bilaterally Cardio Palpation: normal PMI Heart sounds: S1 normal heart sound present, S2 normal heart sound present, no gallops, no murmurs and no rubs GI Palpation (GI): Soft to palpation Back/Spine/Pelvis Other: unremarkable Skin Lesions: other Neuro General: other Extrem General: Yes other Psych Mental Status: other Objective Labs and Meds Result diagrams: 06/08/21 04:33 06/08/21 04:33 Lab results: Laboratory Results - last 24 hr 06/08/21 06/08/21 06/08/21 16:28 17:01 22:17 aPTT Heparin Protocol 82.9 H D 44.6 L D Troponin I High Sens 19.1 H D 06/09/21 04:39 aPTT Heparin Protocol 100.8 H D Troponin I High Sens Progress Note: A&P Assessment and plan (1) NSTEMI (non-ST elevated myocardial infarction): Status: Acute Plan High sensitivity troponins are elevated at 47 and 49. CTA shows no evidence of pulmonary embolism. From the cardiac aspect, coronary artery calcifications seen. She clearly had a non ST elevation myocardial infarction. At this time, keep her on heparin drip. Continue aspirin, high-dose statins. Blood pressure medications. Add low-dose beta-blockers. Hold HCTZ as she received IV contrast yesterday and will receive again for cath. Tx to [facility] tomorrow. Fall Risk Details Current Medications: Current Medications Amlodipine Besylate (Amlodipine Besylate 10 Mg Tablet) 10 mg PO DAILY [facility]; Protocol Last Admin: 06/09/21 09:06 Dose: 10 mg Documented by: Anastrozole (Anastrozole 1 Mg Tablet) 1 mg PO BEDTIME [facility] Last Admin: 06/08/21 22:33 Dose: Not Given Documented by: Aspirin (Aspirin Enteric Coated 81 Mg Tablet.) 81 mg PO DAILY [facility] Last Admin: 06/09/21 09:06 Dose: 81 mg Documented by: Atorvastatin Calcium (Atorvastatin Calcium 80 Mg Tablet) 80 mg PO BEDTIME [facility] Last Admin: 06/08/21 22:32 Dose: 80 mg Documented by: Heparin Sodium (Porcine) (Heparin Sodium,Porcine 5,000 Unit/Ml Vial) 3,500 unit 40 unit/kg (3500 unit) IVPUSH PROTOCOL BOLUS PRN; Protocol PRN Reason: 40 unit/kg - Heparin Protocol Last Admin: 06/08/21 22:51 Dose: 3,500 unit Documented by: Heparin Sodium (Porcine) (Heparin Sodium,Porcine 5,000 Unit/Ml Vial) 6,900 unit 80 unit/kg (6900 unit) IVPUSH PROTOCOL BOLUS PRN; Protocol PRN Reason: 80 unit/kg - Heparin Protocol Hydrochlorothiazide (Hydrochlorothiazide 25 Mg Tablet) 25 mg PO DAILY [facility] Last Admin: 06/09/21 09:06 Dose: 25 mg Documented by: Heparin Sodium/Sodium Chloride () 25,000 unit in 250 mls @ 0 mls/hr IVCONT .Q0M [facility]; Protocol Last Admin: 06/09/21 07:46 Dose: 5 units/kg/hr, 4.31 mls/hr Documented by: Omeprazole (Omeprazole 40 Mg Capsule.) 40 mg PO DAILY@0630 [facility] Last Admin: 06/09/21 05:57 Dose: 40 mg Documented by: Sodium Chloride (0.9 % Sodium Chloride Flush 3 Ml Syringe) 3 ml IVFLUSH QSHIFT [facility] Last Admin: 06/09/21 09:05 Dose: Not Given Documented by: Vitamin D (Cholecalciferol (Vitamin D3) 10 Mcg Tablet) 20 mcg PO DAILY [facility] Last Admin: 06/09/21 09:06 Dose: 20 mcg Documented by: Time Spent With Patient Time: Total time spent is greater than 50% in coordination of care (as documented) at patient's floor/unit and/or counseling patient: Time with patient: less than 15 minutes Progress Note: Quality Stroke Does the patient have a stroke diagnosis?: No Procedures Date of Service Date of Service: 06/09/21
[2021-06-09 11:32] LABS: PTT Heparin Drip 37.9 SEC (53-77.9)
[2021-06-09] MEDS: Heparin Sodium,Porcine 5,000 UNIT/ML VIAL 3500 UNIT IVPUSH (12:04)
[2021-06-09 16:00] VITALS: BP 132/62; PULSE 67; TEMP 36.9
[2021-06-09 18:26] LABS: PTT Heparin Drip 64.1 SEC (53-77.9)
[2021-06-09] MEDS: Heparin Sodium,Porcine/1/2NS 25,000 UNIT/250 ML IV.SOLN 6.03 UNIT IVCONT (19:34)
[2021-06-09 19:42] VITALS: BP 156/72; PULSE 70; TEMP 36.4; O2SAT 97
[2021-06-09] MEDS: Atorvastatin Calcium 80 MG TABLET PO (21:31)
[2021-06-09] MEDS: Anastrozole 1 MG TABLET PO (21:31)
[2021-06-09 23:12] VITALS: BP 143/65; PULSE 81; RESP 20; TEMP 36.8; O2SAT 98
[2021-06-10 00:55] LABS: PTT Heparin Drip 43.5 SEC (53-77.9)
[2021-06-10] MEDS: Heparin Sodium,Porcine 5,000 UNIT/ML VIAL 3500 UNIT IVPUSH (01:27)
[2021-06-10 03:50] VITALS: BP 127/60; PULSE 65; RESP 18; TEMP 37.3; O2SAT 96
[2021-06-10] MEDS: Omeprazole 40 MG CAPSULE.DR PO (06:02)
[2021-06-10 07:24] LABS: PTT Heparin Drip 94.5 SEC (53-77.9)
[2021-06-10 07:36] VITALS: BP 138/71; PULSE 61; RESP 20; TEMP 37.3; O2SAT 95
[2021-06-10] MEDS: Metoprolol Succinate ER 25 MG TAB.ER.24H PO (10:42)
[2021-06-10] MEDS: Cholecalciferol (Vitamin D3) 10 MCG TABLET 20 MCG PO (10:42)
[2021-06-10] MEDS: Aspirin Enteric Coated 81 MG TABLET.DR PO (10:43)
[2021-06-10] MEDS: 0.9 % Sodium Chloride Flush 3 ML SYRINGE IVFLUSH (10:43)
[2021-06-10] MEDS: amLODIPine Besylate 10 MG TABLET PO (10:43)
--- NOTE | 2021-06-10 11:19 | PM.PNCARD ---
Subjective Subjective Date of Service: 06/10/21 Interval history: No further chest pain. Review of Systems Review of Systems Yes all other systems are reviewed and are negative Cardiovascular: Reports as per HPI, Reports no additional cardiovascular complaints, Denies acrocyanosis, Denies cool extremities, Reports chest pain, Denies diaphoresis, Denies syncope, Denies claudication, Denies leg edema, Denies lightheadedness, Denies palpitations and Denies dyspnea Respiratory: Denies dyspnea Denies syncope Endocrine: Denies palpitations Physical Exam Vital Signs: Last Vital Signs Temp 99.1 F 06/10/21 07:36 Pulse 61 06/10/21 07:36 Resp 20 06/10/21 07:36 BP 138/71 06/10/21 07:36 Pulse Ox 95 06/10/21 07:36 BMI result Body Mass Index 33.6 Const General: comfortable HENMT Other: Unremarkable Neck Neck: Yes normal visual inspection Chest Chest palpation & inspection: normal inspection of the chest Resp Auscultation: clear to auscultation bilaterally Cardio Palpation: normal PMI Heart sounds: S1 normal heart sound present, S2 normal heart sound present, no gallops, no murmurs and no rubs GI Palpation (GI): Soft to palpation Back/Spine/Pelvis Other: unremarkable Skin Lesions: other Neuro General: other Extrem General: Yes other Psych Mental Status: other Objective Labs and Meds Result diagrams: 06/08/21 04:33 06/08/21 04:33 Lab results: Laboratory Results - last 24 hr 06/09/21 06/09/21 06/10/21 11:03 18:05 00:38 aPTT Heparin Protocol 37.9 L D 64.1 D 43.5 L D 06/10/21 06:48 aPTT Heparin Protocol 94.5 H D Progress Note: A&P Assessment and plan (1) NSTEMI (non-ST elevated myocardial infarction): Status: Acute Plan High sensitivity troponins are elevated at 47 and 49. CTA shows no evidence of pulmonary embolism. From the cardiac aspect, coronary artery calcifications seen. She clearly had a non ST elevation myocardial infarction. As it has been well past 48 hours, can stop heparin drip. Continue aspirin, high-dose statins. Blood pressure medications. Low-dose beta-blockers. Hold HCTZ as she received IV contrast and will receive again for cath. Tx to [facility] for cath. Fall Risk Details Current Medications: Current Medications Amlodipine Besylate (Amlodipine Besylate 10 Mg Tablet) 10 mg PO DAILY [facility]; Protocol Last Admin: 06/10/21 10:43 Dose: 10 mg Documented by: Anastrozole (Anastrozole 1 Mg Tablet) 1 mg PO BEDTIME [facility] Last Admin: 06/09/21 21:31 Dose: 1 mg Documented by: Aspirin (Aspirin Enteric Coated 81 Mg Tablet.) 81 mg PO DAILY [facility] Last Admin: 06/10/21 10:43 Dose: 81 mg Documented by: Atorvastatin Calcium (Atorvastatin Calcium 80 Mg Tablet) 80 mg PO BEDTIME SEA Last Admin: 06/09/21 21:31 Dose: 80 mg Documented by: Heparin Sodium (Porcine) (Heparin Sodium,Porcine 5,000 Unit/Ml Vial) 3,500 unit 40 unit/kg (3500 unit) IVPUSH PROTOCOL BOLUS PRN; Protocol PRN Reason: 40 unit/kg - Heparin Protocol Last Admin: 06/10/21 01:27 Dose: 3,500 unit Documented by: Heparin Sodium (Porcine) (Heparin Sodium,Porcine 5,000 Unit/Ml Vial) 6,900 unit 80 unit/kg (6900 unit) IVPUSH PROTOCOL BOLUS PRN; Protocol PRN Reason: 80 unit/kg - Heparin Protocol Hydrochlorothiazide (Hydrochlorothiazide 25 Mg Tablet) 25 mg PO DAILY [facility] Last Admin: 06/09/21 09:06 Dose: 25 mg Documented by: Heparin Sodium/Sodium Chloride () 25,000 unit in 250 mls @ 0 mls/hr IVCONT .Q0M SEA; Protocol Last Titration: 06/10/21 08:58 Dose: 6 units/kg/hr, 5.17 mls/hr Documented by: Metoprolol Succinate (Metoprolol Succinate Er 25 Mg Tab.Er.24h) 25 mg PO DAILY [facility]; Protocol Last Admin: 06/10/21 10:42 Dose: 25 mg Documented by: Omeprazole (Omeprazole 40 Mg Capsule.) 40 mg PO DAILY@0630 [facility] Last Admin: 06/10/21 06:02 Dose: 40 mg Documented by: Sodium Chloride (0.9 % Sodium Chloride Flush 3 Ml Syringe) 3 ml IVFLUSH QSHIFT [facility] Last Admin: 06/10/21 10:43 Dose: 3 ml Documented by: Vitamin D (Cholecalciferol (Vitamin D3) 10 Mcg Tablet) 20 mcg PO DAILY [facility] Last Admin: 06/10/21 10:42 Dose: 20 mcg Documented by: Time Spent With Patient Time: Total time spent is greater than 50% in coordination of care (as documented) at patient's floor/unit and/or counseling patient: Time with patient: less than 15 minutes Progress Note: Quality Stroke Does the patient have a stroke diagnosis?: No Procedures Date of Service Date of Service: 06/10/21
[2021-06-10 11:38] VITALS: BP 143/68; PULSE 64; RESP 20; TEMP 37.1; O2SAT 96
== END 2021-06-10 14:50 | disposition short-term general hospital (02) | DRG 190 ==
LOC: HO.ED 17:49 → HO.EDOVER 18:20 → HO.IMC 06-09 01:39
PROVIDERS: Emergency Medicine; Internal Medicine; Admitting Provider Internal Medicine; Emergency Provider Internal Medicine; PCP Internal Medicine; Visit Provider Internal Medicine
DX: I21.4 Non-ST elevation (NSTEMI) myocardial infarction (principal); C50.919 Malignant neoplasm of unspecified site of unspecified female breast; I45.10 Unspecified right bundle-branch block; E78.5 Hyperlipidemia, unspecified; I10 Essential (primary) hypertension; K21.9 Gastro-esophageal reflux disease without esophagitis; Z20.822 Contact with and (suspected) exposure to COVID-19; Z88.6 Allergy status to analgesic agent; Z79.82 Long term (current) use of aspirin; Z79.899 Other long term (current) drug therapy
CPT/HCPCS: 36415; 71045; 71275; 80048; 80061; 80076; 84484; 85025; 85027; 85379; 85610; 85730; 87635; 93005; 93306; 99285; Q9967